=== PATIENT | female | born 1960 | race Caucasian/White ===

== ENCOUNTER → 2017-06-24 | Day surgery (SDC) | payer BC ==
--- NOTE | 2017-06-24 13:17 | RAD REPORT ---
EXAM DESCRIPTION: US - Guided FNA Non Breast - 06/24/2017 10:29 am CLINICAL HISTORY: Thyroid nodule ICD E04.1. COMPARISON: 09/15/2016. FINDINGS: Sonographic evaluation demonstrates a dominant nodule within the left lobe of thyroid gland measuring approximately 2 cm. The risks, benefits and alternatives to the procedure were explained to the patient and informed cons ent obtained. Skin subcutaneous tissues were anesthetized with Lidocaine. Under sonographic guidance, five 25-gauge needle passes were obtained into the 2 cm nodule. Specimens were given to pathology. The patient experienced no immediate complication. IMPRESSION: Fine-needle aspirations of a 2 cm left thyroid nodule.
== END ==
LOC: FNA 09:14
PROVIDERS: ATTEND Otolaryngology
PROC: 0G9G3ZX Drainage of Left Thyroid Gland Lobe, Percutaneous Approach, Diagnostic (ICD-10-PCS; principal; 2017-06-24)
DX: E04.1 Nontoxic single thyroid nodule (principal)
CPT/HCPCS: 76942; 88162

== ENCOUNTER 2017-08-07 10:35 | Inpatient (IN) | payer BC ==
[2017-08-05 10:52] LABS: Absolute Monocytes 0.6 K/uL (0.1-1.3); Absolute Neutrophil 5.6 K/uL (1.8-8.0); Basophils % 0.8 % (0-1.3); Eosinophils % 2.6 % (0-4.4); Hematocrit 44.2 % (36.0-45.0); Lymphocytes % 31.4 % (15.3-44.8); MCH 29.9 pg (27.0-35.0); MCV 86.4 fL (80-100); MPV 8.2 fL (7.6-11.3); Monocytes % 6.5 % (3.3-12.3); RBC Red Blood Cell Count 5.12 M/uL (3.86-4.86)
[2017-08-05 11:27] LABS: Protein, Total 7.5 g/dL (6.0-8.3)
--- NOTE | 2017-08-05 23:02 | EKG ---
Test Date: 2017-08-05 Test Time: 10:40:21 Law Firm Receptionist: ANA MEASUREMENT RESULTS: Intervals: Rate: 67 MT: 158 QRSD: 92 QT: 410 QTc: 433 Roland: P: 19 MT: 158 QRS: -21 T: 33 INTERPRETIVE STATEMENTS: Normal sinus rhythm Normal ECG No previous ECG available for comparison Electronically Signed On 08-05-17 23:00:59 CDT by Yaakov Holcomb
[2017-08-07] MEDS ORDERED: NA CHLORIDE 0.9% 1,000 ML ONE ×2 (10:56→14:37)
[2017-08-07] MEDS ORDERED: LIDOCAINE 1% W/EPI 1:100,000 MDV 50 ML VIAL ONE (11:07)
[2017-08-07] MEDS ORDERED: FENTANYL CITR 100 MCG/2 ML ONE ×2 (11:47→17:02)
[2017-08-07] MEDS ORDERED: PROPOFOL 200 MG/20 ML VIAL IV ONE ×3 (11:47→17:54)
[2017-08-07] MEDS ORDERED: ROCURONIUM 50 MG/5 ML VIAL IV ONE ×2 (11:48→17:02)
[2017-08-07] MEDS ORDERED: MIDAZOLAM HCL 2 MG/2 ML INJ ONE (11:49)
[2017-08-07] MEDS ORDERED: LIDOCAINE 2% MPF 5 ML VIAL ONE (11:49)
[2017-08-07] MEDS ORDERED: ONDANSETRON HCL 40 MG/20 ML VIAL ONE (11:56)
[2017-08-07] MEDS ORDERED: SCOPOLAMINE HYDROBROMIDE PATCH TD ONE (12:38)
[2017-08-07] MEDS ORDERED: EPHEDRINE SULF 50 MG/5 ML SYR ONE (12:48)
[2017-08-07] MEDS ORDERED: Mastisol Adhesive Liq ONE (13:57)
[2017-08-07] MEDS ORDERED: NEOSTIGMINE 1 MG/ML -5 ML SYRINGE ONE ×2 (14:00→18:03)
[2017-08-07] MEDS ORDERED: GLYCOPYRROLATE 0.2 MG/ML SYR ONE ×2 (14:00→18:02)
--- NOTE | 2017-08-07 14:03 | P.BOP ---
Preoperative diagnosis: suspicious thyroid mass Postoperative diagnosis: same Primary procedure: total thyroidectomy Director Clinical Operations: Olamide Ace Estimated blood loss: 20ml Specimen: total thyroid Findings: very hard L thyroid mass Anesthesia: General Drain(s): ANDRE drain Fluids & blood products: crystalloid 900ml Transferred to: Recovery Room Condition: Good
[2017-08-07] MEDS ORDERED: DEXAMETHASONE 10 MG/ML VIAL ONE (14:17)
[2017-08-07] MEDS ORDERED: ALBUTEROL 2.5 MG/3 ML NEB SOL ONE (14:23)
[2017-08-07] MEDS ORDERED: EPINEPHRINE INH 0.5 ML VIAL IH ONE (14:28)
[2017-08-07] MEDS ORDERED: ONDANSETRON 4 MG/2 ML VIAL IV PRN (15:39)
[2017-08-07] MEDS: INSULIN -REGULAR HUMAN 50 UNIT/0.5 ML ML SQ SCH ×2 (16:30→21:00)
[2017-08-07] MEDS ORDERED: D50W 25 GM/50 ML SYRINGE IV PRN (16:53)
[2017-08-07] MEDS ORDERED: GLUCAGON 1 MG/VIAL IM PRN (16:53)
[2017-08-07] MEDS ORDERED: SUCCINYLCHOLINE 20 MG/ML (10 ML) IV ONE (16:59)
[2017-08-07] MEDS: LIDOCAINE 1% W/EPI 1:100,000 MDV 50 ML VIAL ONE ×2 (17:07→17:24)
--- NOTE | 2017-08-07 17:24 | PN ---
Interim History: The patient underwent a total thyroidectomy earlier this afternoon. She was noted immediately following extubation to have inspiratory stridor, but after a few breaths seem to settle down, and did not have significant stridor during quiet respiration. A flexible nasal laryngoscopy was performed while in the operating room, and the patient was noted to have paresis of both vocal cords, but an adequate glottic airway, and was transported to the recovery room for close monitoring. Over the next 2 hours, the patient continued to have subjective difficulty breathing, though she did not have retractions, and her oxygen saturation remained excellent. With deep inspiration, she had stridor and a second flexible laryngoscopy was performed. The patient was noted to have very limited bilateral vocal cord movement with the vocal cords in the paramedian position. The findings were discussed with the patient and her family, and the decision was made to admit the patient to the ICU for close observation overnight. After careful consideration of the situation, I discussed the option of tracheostomy with the patient, and she favored tracheostomy, suggesting to me that her difficulty breathing was more significant subjectively than clinically apparent and decision was made to proceed electively to the operating room for placement of tracheostomy to secure her airway. The risks, benefits, and alternatives to the procedure were discussed with the patient including failure to decannulate or inability to decannulate. We will plan for OR KAYY and proceed with admission to the ICU for the weekend. GABRIELA Voice ID: [id number] Report ID: [id number] YOLANDA
[2017-08-07] MEDS: NA CHLORIDE 0.9% 1,000 ML IV SCH ×2 (17:35→21:10)
[2017-08-07 17:39] LABS: Albumin 4.2 g/dL (3.2-5.5); Magnesium 2.1 mg/dL (1.8-2.5); Phosphorus 3.3 mg/dL (2.5-4.3)
--- NOTE | 2017-08-07 18:48 | RAD REPORT ---
EXAM DESCRIPTION: RAD - Abdomen 1 View (KUB) - 08/07/2017 6:42 pm CLINICAL HISTORY: DHT placement Pain COMPARISON: No comparisons FINDINGS: The bowel gas pattern is non-obstructive. No evidence of free air or pneumatosis. Enteric tube is in the stomach.
[2017-08-07] MEDS: HYDROCODONE/APAP 5/325 MG TAB PO PRN (20:28)
[2017-08-07] MEDS: IBUPROFEN 100 MG/5 ML UCUP PO PRN (23:33)
[2017-08-08] MEDS: NA CHLORIDE 0.9% 1,000 ML IV SCH ×4 (02:00→22:00)
--- NOTE | 2017-08-08 02:00 | OP ---
Date of Procedure: 08/07/2017 Surgeon: Emma Johnson MD Assembly Machine Tender: Olamide Ace. Preoperative Diagnosis: Suspicious left thyroid nodule, hypercalcemia (11.4). Postoperative Diagnosis: Suspicious left thyroid nodule, clinically suspicious for malignancy. Indication For Procedure: Danielle Collins is a 56-year-old white female who presented with an incidental thyroid nodule. Due to social stressors including the loss of her , she opted for observation initially. On repeat the ultrasound approximately 6 months later, the nodule had enlarged slightly, and she was amenable to biopsy. She underwent an ultrasound-guided fine-needle aspiration of the left thyroid nodule which was suspicious for malignancy; and due to this finding, a total thyroidectomy was recommended. The finding of hypercalcemia was noted on pre-operative labs but no formal work-up was performed due to pending neck surgery which would allow exploration. Specimen: Total thyroid with suture marking superior left pole. Description Of Procedure: The patient was brought to the operating room. She was placed under general anesthesia via oral endotracheal tube. Shoulder roll was placed. The patient's neck was extended. The planned incision site was injected with 1% lidocaine with epinephrine, and the neck was prepped and draped in standard fashion for thyroid surgery. A low collar incision was made through the skin and subcutaneous tissues using a scalpel, and the Bovie electrocautery was used to elevate the subplatysmal flap superiorly and inferiorly. The strap muscles were then identified in the midline and carefully . The strap muscles were elevated easily off the anterior surface of the thyroid, and the inferior pole was mobilized by division of soft tissue and vascular attachments with the LigaSure. The inferior pole was noted to be soft with a normal or average texture. In the deep mid lobe, there was a very hard nodule consistent with ultrasound findings. In addition, in the superior pole, there was a very firm or hard nodule; and along the lateral aspect superiorly, the muscle was somewhat stuck down to the mass. The small sliver of the strap muscles were divided and left attached to the specimen. The superior pole was carefully dissected along its capsule, and vascular attachments were divided using the LigaSure. The thyroid was mobilized, but the firm hard nodule was stuck down firmly in the area of the Tariq ligament, and a small amount of bleeding from small vessels was noted. This area was packed to allow for hemostasis without cautery, and attention was turned to the right thyroid. The strap muscles were easily elevated off the right thyroid, and the thyroid capsule was identified. Dissection was carried out superiorly around the superior pole, and vascular attachments were divided using the LigaSure. The lateral border was rolled medially, and the inferior pole was carefully dissected. The texture of the right thyroid was soft and otherwise unremarkable. The thyroid was carefully released from the area of Tariq ligament. The right recurrent laryngeal nerve was identified deep to this area. Once Tariq ligament was released, the thyroid isthmus was elevated off the anterior wall of the trachea. A small pyramidal lobe was noted, and this was carefully dissected due to concern for thyroid malignancy and desire to remove all gross thyroid tissue. Once the pyramidal lobe was mobilized, attention was turned back to the left Tariq ligament area. The tissues were carefully elevated off the left sidewall of the trachea, but was quite stuck down in the area of the recurrent laryngeal nerve. The recurrent laryngeal nerve was not specifically identified as the final soft tissue attachments became dislodged during retraction. The specimen was then removed and carefully inspected. There wassome concern for parathyroid tissue noted on the right inferior surface of the thyroid. I tried to dissect the tissue off the surface of the thyroid but it was larger than expected for parathyroid and in consideration of pre-operative hyperparathyroidism, I opted to leave this tissue attached to the specimen. The specimen was sent to pathology for permanent section analysis. The surgical bed was carefully inspected. The left upper and lower parathyroid glands were visually identified on the and appeared to have adequate vascular pedicle and good color. There was no significant bleeding or oozing noted within the surgical bed. The right parathyroids were not specifically identified by visual inspection. A 10-Kyrgyz ANDRE drain was then placed within the neck and withdrawn through the left neck approximately a centimeter and a half lateral to the incision. The strap muscles were approximated with a single suture in the midline over the trachea. The incision was then closed in layered fashion using 4-0 chromic deep sutures and 5-0 Monocryl subcuticular suture. The incision was covered with Mastisol and Steri-Strips, and the patient was returned to care of Anesthesia for awakening and extubation in the operating room. Following extubation, the patient was noted to have 2 loud episodes of inspiratory stridor. She was monitored in the operating room for several minutes. She was oxygenating well with mild supplementation of oxygen. She did not have any retractions or increased work of breathing noted. During low tidal volume respiration, she was quiet, but there was some concern for mild stridor with deeper breaths versus lung wheezing. A flexible laryngoscope was brought into the room. There were copious secretions; and due to patient's decreased level of alertness from anesthesia, she was poorly cooperative with examination. The vocal cords were easily identified and appeared mobile, but sluggish. With deep inspiration, there was a paradoxical vocal cord movement with a little floppy movement of the medial-most surface. The patient appeared stable, and decision was made to move to the recovery room to allow further emergence from anesthesia. Disposition: The patient will be monitored carefully in the recovery room for signs of airway obstruction or vocal cord paresis prior to consideration for discharge. GABRIELA Voice ID: [id number] Report ID: [id number] YOLANDA
[2017-08-08] MEDS: HYDROCODONE/APAP 5/325 MG TAB PO PRN ×4 (02:02→21:06)
[2017-08-08 06:25] LABS: Albumin 3.8 g/dL (3.2-5.5); Potassium 3.9 mEq/L (3.6-5.0)
[2017-08-08] MEDS: INSULIN -REGULAR HUMAN 50 UNIT/0.5 ML ML SQ SCH ×4 (07:30→21:00)
[2017-08-08] MEDS: HOME MED 1 EA UNK (Potassium [Potassium] 99 MG) PO SCH (07:59)
[2017-08-08] MEDS: CARVEDILOL 25 MG TAB PO SCH ×2 (08:03→21:05)
[2017-08-08] MEDS: hydroCHLOROthiazide 25 MG TAB PO SCH (08:03)
[2017-08-08] MEDS: MAGNESIUM OXIDE 400 MG TAB PO SCH (08:07)
[2017-08-08] MEDS ORDERED: VALSARTAN 160 MG TAB PO SCH (09:00)
[2017-08-08] MEDS: GLIMEPIRIDE 2 MG TABLET PO SCH (09:00)
[2017-08-08] MEDS ORDERED: PANTOPRAZOLE 40MG TABLET PO SCH (09:00)
[2017-08-08] MEDS ORDERED: NIACIN 500 MG SR TAB PO SCH (09:00)
--- NOTE | 2017-08-08 09:09 | P.PN ---
Subjective Date of Service: 08/08/17 Chief Complaint: No complaints Subjective: Other POD 1 TT with B VC paresis requiring secondary surgery for tracheotomy. Patient admitted to ICU for monitoring overnight. Pain is controlled with [place] and Advil. Denies perioral tingling or tingling in fingertips/toes. Unable to voice around trach but communicating by writing. No significant overnight events. Jerome placed in OR yesterday remains. Review of Systems Unremarkable Physical Examination - Vital Signs Temperature: 97.6 F Blood Pressure: 117/66 Pulse: 90 Respirations: 18 Pulse Ox (%): 100 - Physical Exam General: Alert, In no apparent distress HEENT: Atraumatic, Normocephalic, PERRLA, Other (Left DHT in place.) Neck: Supple, Other (6.[address] with sutures and umbilical tie. On trach collar. Minimal drainage. No redness of surrounding skin. No voicing around trach.) Musculoskeletal: Other (Negative Chvostek sign) Neurological: Normal affect - Studies Laboratory Data (last 24 hrs) 08/08/17 07:34: POC Glucose 134 H 08/08/17 05:32: Sodium 139, Potassium 3.9, Chloride 107, Carbon Dioxide 23, BUN 22 H, Creatinine 0.73, Estimated GFR 82 L, Glucose 151 H, Calcium 8.6 D, Albumin 3.8 08/07/17 20:30: POC Glucose 145 H 08/07/17 18:35: POC Glucose 141 H 08/07/17 17:05: Calcium 9.9 D, Phosphorus 3.3, Magnesium 2.1, Albumin 4.2 08/07/17 14:43: PTH Intact < 4 L 08/07/17 14:37: POC Glucose 108 08/07/17 11:19: POC Glucose 99 Medications List Reviewed: Yes Assessment And Plan - Current Problems (Diagnosis) (1) Bilateral vocal cord paresis Current Visit: Yes Status: Acute Plan: s/p trach yesterday evening. Watching waiting for spontaneous recovery. Discussed with patient that recovery can take several weeks or months and that no additional intervention would be considered until about 6 months from now. If spontaneous recovery is noted, decannulation protocol will be followed. For now, I anticipate discharge home with a tracheotomy. She needs case management for home suction, trach supplies, home health visits to reinforce trach care teaching. Anticipate downsize to 4.0 CFS on Thursday. Do to new tracheotomy, will keep patient in ICU for now. (2) Airway obstruction, anatomic Current Visit: Yes Status: Acute Plan: see plan for VC paresis (3) Thyroid cancer Current Visit: Yes Status: Acute Plan: s/p total thyroidectomy. Pathology for confirmation and pathologic staging pending. Will likely need endocrinology follow up for discussion of WADE once acute issues are stablized. (4) Post-surgical hypothyroidism Current Visit: Yes Status: Acute Plan: Due to likely cancer diagnosis, will hold LT4 supplement at this time. (5) Post-surgical hypoparathyroidism Current Visit: Yes Status: Acute Plan: Ca, Mg, Alb q 12 hours. Will treat according to hypoCa protocol if continues to decrease. Patient educated about symptoms of HypoCa and asked to notify nurse KAYY if symptoms develop. Plan for PTH measurement on Thursday. (6) Aspiration into airway Current Visit: Yes Status: Acute Plan: DHT in place for tube feeds. Discussed risk of aspiration with vocal cord paresis. Plan for bedside swallow eval with HOLLOW HANDLE KNIFE ASSEMBLER on Thursday. If fails, will plan for MBS. If MBS indicates aspiration can be managed with dietary modifications, will d/c DHT and start diet. If unable to manage with diet modifications, we will discuss feeding tube placement for nutrition until vocal cord issues stabilize. Qualifiers: Encounter type: initial encounter Qualified Code(s): T17.908A - Unspecified foreign body in respiratory tract, part unspecified causing other injury, initial encounter (7) Diabetes mellitus Current Visit: Yes Status: Acute Plan: Monitor FSBG. Continue insulin sliding scale. Continue home glipizide. Jardiance not available in hospital. Hospitalist contacted for suggestions for alternative. Formal consultation not needed at this time but if sugars become an issue, will reassess need. Continue FSBG measurements - no insulin has been needed since levels in the 140-150s. This may change as we start tube feeds. Military Technician consulted for TF recommendations Qualifiers: Diabetes mellitus type: type 2 Diabetes mellitus parts counterman insulin use: without shelter use Diabetes mellitus complication detail: with nephropathy (8) Hypertension Current Visit: Yes Status: Acute Plan: Controlled, continue home medications (9) At high risk for deep venous thrombosis Current Visit: Yes Status: Acute Plan: SCDs in place. Discussed risk with patient including signs/symptoms and risk of PE. Since she's <24 hours from surgery, will hold pharmacologic prophylaxis for now. Consider starting tomorrow if surgical site is clean and dry. Discuss ambulation and OOB to chair today. DC Jerome today to aid in ambulation. Discharge Plan: Home Plan to discharge in: Greater than 2 days - Code Status/Comfort Care Code Status: Full Code Time Spent Managing PTS Care (In Minutes): 60
[2017-08-08] MEDS: CETIRIZINE HCL 5 MG TABLET PO SCH (09:28)
[2017-08-08] MEDS: CYANOCOBALAMIN 1,000 MCG TAB PO SCH (09:28)
--- NOTE | 2017-08-08 13:45 | OP ---
Date of Procedure: 08/08/2017 Surgeon: Emma Johnson MD Preoperative Diagnoses: Airway obstruction, bilateral vocal cord paresis, surgical hypothyroidism, surgical hypoparathyroidism. Postoperative Diagnoses: Airway obstruction, bilateral vocal cord paresis, surgical hypothyroidism, surgical hypoparathyroidism. Procedure: Wound exploration, Tracheostomy. Indication For Procedure: The patient underwent a total thyroidectomy for suspected thyroid cancer earlier in the afternoon. At the time of extubation, she had brief episode of stridor and was monitored carefully in the recovery room. Approximately 2 to 2-1/2 hours after her extubation on reassessment, she had mild inspiratory stridor, was oxygenating well and did not appear to be in any acute distress in terms of retractions, increased work of breathing, tachycardia, or tachypnea. However, the patient did complain of subjective difficulty breathing and a bedside fiberoptic laryngoscopy was performed. Findings demonstrated both vocal cords in a paramedian position with narrowing of the glottic gap and minimal abduction or adduction with phonation and respiration; she had a significantly breathy voice. In the recovery room, the patient was given some sips of water with a weak cough, raising concern for aspiration. Although the patient did not appear to be in acute distress, she was having subjective symptoms of airway obstruction. Initial plan for admission to the ICU for close monitoring was reassessed given the patient's laryngoscopic findings. I discussed the options with the patient including close monitoring with surgical intervention if symptoms worsened versus proceeding with the planned tracheostomy and the patient indicated immediately by nodding her head "yes" that she wished to proceed with tracheostomy, suggesting that her symptoms of airway obstruction were greater than clinically apparent. Description Of Procedure: The patient was brought to the operating room. She was placed under general anesthesia via oral endotracheal tube. A shoulder roll was placed and the head was supported. The neck was prepped with Betadine after removal of the previously placed Steri-Strips, and the neck was draped in sterile fashion. Her thyroidectomy incision was opened by removal of sutures and the surgical site was carefully inspected. The previously placed the ANDRE drain was removed, and the drain site was closed with a single fast-absorbing gut suture. On inspection of the cavity, the patient's laryngeal musculature, cricoid, and trachea appeared normal. By retraction of the strap muscles, the thyroid bed was carefully inspected bilaterally. The right thyroid bed was hemostatic. There was no significant drainage and no evidence of bleeding. No discrete parathyroid tissue was noted within the right thyroid bed. The right recurrent laryngeal nerve was visually identified and with gentle retraction on the larynx and trachea, it appeared to be physically intact. There was no evidence of suture in this region. There was no evidence of cautery charring on the nerve, though there was some keyla in the area of Tariq ligament several millimeter superficial to the nerve insertion. Inspection the left thyroid bed revealed 2 areas of tissue consistent in appearance with parathyroid tissue. These appear to have good color suggesting adequate vascular inflow and outflow. The left recurrent laryngeal nerve was identified near its insertion point to the larynx. Again it appeared anatomically to be intact without evidence of suture or charring on the nerves. There was no bleeding noted within the left surgical bed and plan was made to proceed with tracheostomy. The lateral aspects of the thyroidectomy incision were closed in a layered fashion using 4-0 Vicryl deep sutures and 5-0 fast-absorbing gut for the skin. The central 2 cm of the incision was left open and preparations were made for the tracheostomy incision. After confirming the plan with the anesthesiologist , the space between the second and third tracheal rings was identified and the surface of the trachea was lightly scored with the Bovie electrocautery. A scalpel was then used to make a tracheostomy incision between the second and third tracheal rings. The endotracheal tube was identified and slowly withdrawn. A 6 low-pressure cuffed Shiley tracheostomy tube was attempted to be placed, but the tracheostomy incision was slightly too small, and during attempts to revise and enlarge the incision, the patient's oxygen saturation began to drop into the low 90s. The anesthesiologist was asked to advance the endotracheal tube beyond the tracheostomy incision, and the patient was ventilated for several minutes to bring her oxygen saturation back to 100% and to preoxygenate her. Once her oxygenation status was stabilized, the tracheostomy incision was enlarged slightly with curved scissors and the endotracheal tube was again partially withdrawn. The 6 low-pressure cuffed tracheostomy tube was then advanced into the trachea, and connected to the anesthesia circuit. Placement was confirmed by fogging in the circuit, visible chest rise for ventilation, and return of CO2 on anesthesia monitoring. The tracheostomy tube was then secured to the anterior neck skin in a four-point fashion with 2-0 silk suture and an umbilical neck tie was placed for further stabilization. Due to patient's risk of aspiration, a Dobbhoff tube was obtained and placed through the left nostril for feeding access anticipated through the patient's initial hospitalization. The Dobbhoff tube was secured with tape to the patient's nose, and the patient was returned to care of anesthesia for awakening and transportation to the intensive care unit for close monitoring overnight. JUAN/ABBEY Voice ID: [id number] Report ID: [id number] MTDD
[2017-08-08] MEDS: CALCITROL 0.25 MCG CAP PO SCH (18:49)
[2017-08-08] MEDS ORDERED: GLUCERNA 1.2 CAL 1,000 ML BOT FT SCH (19:00)
[2017-08-08] MEDS: CALCIUM CARBONATE 500 MG TAB PO SCH (21:04)
[2017-08-08] MEDS: ATORVASTATIN 20 MG TAB PO SCH (21:06)
[2017-08-09] MEDS: HYDROCODONE/APAP 5/325 MG TAB PO PRN ×2 (05:20→22:11)
[2017-08-09 05:58] LABS: Albumin 3.5 g/dL (3.2-5.5); Potassium 3.5 mEq/L (3.6-5.0)
[2017-08-09] MEDS: INSULIN -REGULAR HUMAN 50 UNIT/0.5 ML ML SQ SCH ×4 (07:30→21:00)
[2017-08-09] MEDS: NIACIN 500 MG SR TAB PO SCH (08:22)
[2017-08-09] MEDS: HOME MED 1 EA UNK (Potassium [Potassium] 99 MG) PO SCH (08:22)
[2017-08-09] MEDS: CYANOCOBALAMIN 1,000 MCG TAB PO SCH (08:38)
[2017-08-09] MEDS: Pantoprazole (granules) 40 MG/BLIST PACKET FT SCH (08:38)
[2017-08-09] MEDS: CETIRIZINE HCL 5 MG TABLET PO SCH (08:38)
[2017-08-09] MEDS: CALCITROL 0.25 MCG CAP PO SCH ×2 (08:38→22:12)
[2017-08-09] MEDS: MAGNESIUM OXIDE 400 MG TAB PO SCH (08:39)
[2017-08-09] MEDS: hydroCHLOROthiazide 25 MG TAB PO SCH (08:39)
[2017-08-09] MEDS: CALCIUM CARBONATE 500 MG TAB PO SCH (08:39)
[2017-08-09] MEDS: GLIMEPIRIDE 2 MG TABLET PO SCH (08:39)
[2017-08-09] MEDS: CARVEDILOL 25 MG TAB PO SCH ×2 (08:40→22:17)
[2017-08-09] MEDS: VALSARTAN 160 MG TAB PO SCH (09:00)
[2017-08-09] MEDS ORDERED: POTASSIUM 25 MEQ EFFERV TAB FT SCH (09:00)
--- NOTE | 2017-08-09 09:24 | P.PN ---
Subjective Date of Service: 08/09/17 Chief Complaint: No complaints POD 2 TT with B VC paresis requiring secondary surgery for tracheotomy. Patient and nurse deny any significant issues yesterday or overnight. Patient was up to chair twice and had a little subjective SOB but improved with trach collar resumption. Pain is controlled with [place] and Advil. Denies perioral tingling or tingling in fingertips/toes. Unable to voice around trach with ballon deflated but communicating by writing. Physical Examination - Vital Signs Temperature: 97.6 F Blood Pressure: 102/58 Pulse: 66 Respirations: 13 Pulse Ox (%): 97 - Physical Exam General: Alert, In no apparent distress HEENT: Normocephalic Neck: Other (6LPC Shiley with cuff deflated. Moderate back pressure and no voice production with finger occlusion. Mininal suctions noted from trach tube. Incision difficult to examine due to trach flange. Expected degree of tenderness ) Respiratory: Normal air movement Cardiovascular: Normal pulses, Regular rate/rhythm - Studies Laboratory Data (last 24 hrs) 08/09/17 05:12: Sodium 141, Potassium 3.5 L, Chloride 107, Carbon Dioxide 24, BUN 23 H, Creatinine 0.72, Estimated GFR 83 L, Glucose 129 H, Calcium 7.6 L, Albumin 3.5 -- Corrected Ca is 8.0 08/08/17 20:22: POC Glucose 109 08/08/17 17:04: Calcium 7.8 L 08/08/17 16:46: POC Glucose 107 08/08/17 12:04: POC Glucose 129 H Medications List Reviewed: Yes Assessment & Plan - Problems (Diagnosis) (1) Bilateral vocal cord paresis Current Visit: Yes Status: Acute Plan: s/p trach. Watching waiting for spontaneous recovery. Discussed yesterday with patient that recovery can take several weeks or months and that no additional intervention would be considered until about 6 months from now. If spontaneous recovery is noted, decannulation protocol will be followed. For now , I anticipate discharge home with a tracheotomy. She needs case management for home suction, trach supplies, home health visits to reinforce trach care teaching. Anticipate downsize to 4.0 CFS on Thursday. Doing well without significant secretions - plan to transfer to floor for further care. (2) Airway obstruction, anatomic Current Visit: Yes Status: Acute Plan: see plan for VC paresis (3) Thyroid cancer Current Visit: Yes Status: Acute Plan: s/p total thyroidectomy. Pathology for confirmation and pathologic staging pending. Will likely need endocrinology follow up for discussion of WADE once acute issues are stablized. (4) Post-surgical hypothyroidism Current Visit: Yes Status: Acute Plan: Due to likely cancer diagnosis, will hold LT4 supplement at this time. (5) Post-surgical hypoparathyroidism Current Visit: Yes Status: Acute Plan: Continue Ca, Mg, Alb q 12 hours. Continue Calcium TID and calcitriol 0.25mcg BID for now. No IV calcium is indicated at this time. If she's had subclinical hyperparathyroidism prior to surgery, she may develop hungry bone syndrome. Patient educated about symptoms of HypoCa and asked to notify nurse KAYY if symptoms develop. Plan for PTH measurement on Thursday. (6) Aspiration into airway Current Visit: Yes Status: Acute Plan: DHT in place for tube feeds. Plan for bedside swallow eval with SUPERVISOR CHEMICAL on Thursday. If fails, will plan for MBS. If MBS indicates aspiration can be managed with dietary modifications, will d/c DHT and start diet. If unable to manage with diet modifications, we will discuss feeding tube placement for nutrition until vocal cord issues stabilize. I discussed this possibility with the patient this morning. Will hold further discussion until swallow evaluation is complete. Would plan for consult and PEG placement during this hospitalization if it is indicated. Qualifiers: Encounter type: initial encounter Qualified Code(s): T17.908A - Unspecified foreign body in respiratory tract, part unspecified causing other injury, initial encounter (7) Diabetes mellitus Current Visit: Yes Status: Acute Plan: Monitor FSBG. Continue insulin sliding scale - none required during this hospitalization. Continue home glipizide. Jardiance home medication will be checked by pharmacy and resumed once approved. Kiln Placer consulted for TF recommendations - pending evaluation due to the weekend. She is tolerating [place] 1.2 at 30ml/h with plan to increase to 45ml/h later today. Her BUN is a little high but stable from yesterday - she might required additional free water. Will plan to d/c IV fluids once nutrition's recommendations are available. Qualifiers: Diabetes mellitus type: type 2 Diabetes mellitus intermediate frame tender insulin use: without penitentiary use Diabetes mellitus complication detail: with nephropathy (8) Hypertension Current Visit: Yes Status: Acute Plan: Controlled, borderline low yesterday, continue home medications with hold precautions as ordered. (9) At high risk for deep venous thrombosis Current Visit: Yes Status: Acute Plan: SCDs in place. Discussed risk with patient including signs/symptoms and risk of PE. Since surgical site is clean and dry, start Lovenox SQ for additional DVT prophylaxis. (10) At risk for constipation Current Visit: Yes Status: Acute Plan: Start docusate. Monitor for BM Discharge Plan: Home (Patient's sister is staying with her from [place] until August 22 and may stay longer pending condition. She's comfortable at this point in time going home.) Plan to discharge in: Greater than 2 days (pending SUPERVISOR CHEMICAL findings and potential need for PEG) - Code Status/Comfort Care Code Status: Full Code Time Spent Managing Pts Care (In Minutes): 45 (arranging transfer, speaking with patient and nursing staff.)
[2017-08-09] MEDS ORDERED: GLUCERNA 1.5 CAL 1,000 ML BOT RTH SCH ×2 (12:00→18:08)
[2017-08-09] MEDS: ENOXAPARIN 30 MG/0.3 ML SQ SCH (13:49)
[2017-08-09] MEDS: DOCUSATE NA 100 MG CAP PO SCH ×2 (13:49→22:12)
[2017-08-09] MEDS ORDERED: CALCIUM CARBONATE CHEW 500MG TAB PO SCH (14:00)
[2017-08-09] MEDS: IBUPROFEN 100 MG/5 ML UCUP PO PRN (15:57)
[2017-08-09] MEDS: JARDIANCE 25 MG PO SCH (17:22)
[2017-08-09] MEDS: NA CHLORIDE 0.9% 1,000 ML IV SCH ×3 (17:23→22:11)
[2017-08-09 17:36] LABS: Albumin 3.4 g/dL (3.2-5.5); Magnesium 1.8 mg/dL (1.8-2.5)
[2017-08-09] MEDS: CALCIUM CARBONATE CHEW 500MG TAB PO SCH ×2 (18:28→21:00)
[2017-08-09] MEDS: ATORVASTATIN 20 MG TAB PO SCH (22:12)
[2017-08-10] MEDS: NA CHLORIDE 0.9% 1,000 ML IV SCH (04:00)
[2017-08-10 04:43] LABS: Albumin 3.4 g/dL (3.2-5.5); BUN Blood Urea Nitrogen 17 mg/dL (6-20); Bicarbonate 26 mEq/L (21-31); Glucose Level 132 mg/dL (65-120); Potassium 3.2 mEq/L (3.6-5.0); Sodium Level 142 mEq/L (135-145)
[2017-08-10] MEDS ORDERED: CALCIUM GLUC 10% INJ 4.65 MEQ in NA CHLORIDE 0.9% 100 ML IV ONE (05:09)
[2017-08-10] MEDS ORDERED: CALCIUM GLUCONATE 1 GM IVPB 1 GM/50 ML BAG IV ONE (06:33)
[2017-08-10] MEDS: INSULIN -REGULAR HUMAN 50 UNIT/0.5 ML ML SQ SCH ×4 (07:30→21:00)
[2017-08-10] MEDS: CARVEDILOL 25 MG TAB PO SCH ×2 (08:48→20:15)
[2017-08-10] MEDS: NIACIN 500 MG SR TAB PO SCH (08:48)
[2017-08-10] MEDS: hydroCHLOROthiazide 25 MG TAB PO SCH (08:48)
[2017-08-10] MEDS: GLIMEPIRIDE 2 MG TABLET PO SCH (08:49)
[2017-08-10] MEDS: ENOXAPARIN 30 MG/0.3 ML SQ SCH (08:49)
[2017-08-10] MEDS: MAGNESIUM OXIDE 400 MG TAB PO SCH (08:49)
[2017-08-10] MEDS: CYANOCOBALAMIN 1,000 MCG TAB PO SCH (08:49)
[2017-08-10] MEDS: CALCITROL 0.25 MCG CAP PO SCH ×2 (08:49→20:16)
[2017-08-10] MEDS: CETIRIZINE HCL 5 MG TABLET PO SCH (08:49)
[2017-08-10] MEDS: VALSARTAN 160 MG TAB PO SCH (08:49)
[2017-08-10] MEDS: DOCUSATE NA 100 MG CAP PO SCH (08:49)
[2017-08-10] MEDS: Pantoprazole (granules) 40 MG/BLIST PACKET FT SCH (08:49)
[2017-08-10] MEDS: CALCIUM CARBONATE CHEW 500MG TAB PO SCH ×3 (08:49→20:14)
[2017-08-10] MEDS: JARDIANCE 25 MG PO SCH (08:50)
[2017-08-10] MEDS: HOME MED 1 EA UNK (Potassium [Potassium] 99 MG) PO SCH (08:52)
[2017-08-10] MEDS ORDERED: HOME MED 1 EA UNK (Gabapentin [Gralise] 600 MG) PO SCH (09:00)
[2017-08-10] MEDS ORDERED: POTASSIUM 25 MEQ EFFERV TAB FT SCH (09:00)
[2017-08-10] MEDS ORDERED: HOME MED 1 EA UNK (Empagliflozin [Jardiance] 25 MG) PO SCH (09:00)
[2017-08-10] MEDS: HYDROCODONE/APAP 5/325 MG TAB PO PRN ×2 (10:23→20:16)
[2017-08-10] MEDS ORDERED: GLUCERNA 1.5 CAL 1,000 ML BOT RTH SCH (12:41)
[2017-08-10] MEDS ORDERED: CALCIUM GLUC 10% INJ 9.3 MEQ in NA CHLORIDE 0.9% 100 ML IV ONE (13:30)
[2017-08-10] MEDS: POTASSIUM CL 40 MEQ in NA CHLORIDE 0.9% 500 ML IV SCH ×3 (14:57→22:58)
--- NOTE | 2017-08-10 15:24 | RAD REPORT ---
EXAM DESCRIPTION: RAD - Barium Swallow Modified - 08/10/2017 3:14 pm CLINICAL HISTORY: r/o aspiration COMPARISON: No comparisons TECHNIQUE: The patient was given liquid, semi-solid and solid forms of barium. Lateral view fluorosc opic imaging was performed in conjunction with speech pathology service. FINDINGS: ASPIRATION : NO COUGH WITH THIN DURING SWALLOW OF PILL MILD TO MOD PHARYNGEAL RESIDUE: VALLECULAR,PYRIFORM WITH ALL OTHER: REDUCED SENSATION Total fluoroscopy time: 3 minutes and 32 seconds. IMPRESSION: Positive for aspiration.
[2017-08-10 17:50] LABS: Albumin 3.7 g/dL (3.2-5.5); Magnesium 1.6 mg/dL (1.8-2.5)
[2017-08-10] MEDS ORDERED: MAGNESIUM 50% 3 GM in NA CHLORIDE 0.9% 100 ML IV ONE (18:36)
--- NOTE | 2017-08-10 18:48 | P.PN ---
Subjective Date of Service: 08/10/17 Chief Complaint: Perioral tingling overnight POD 3 TT with B VC paresis requiring secondary surgery for tracheotomy. Patient had perioral tingling overnight that became more persistent toward the morning. Her nurse called me at 0510 and a verbal order was given for 1 amp Calcium gluconate IV x 1 and symptoms improved after administration. She continues to have some mild symptoms at the time of my visit about 12:30PM. She has had 2-3 good BMs and would like to reduce Colace to avoid loose stools. She has been OOB to the commode but is not really ambulating at this time. She had some flushing and gastric discomfort with potassium per tube this morning and doesn't feel she would tolerate this route of administration. She underwent a bedside swallow evaluation and MBS was recommended and is planned for later in the day. Physical Examination - Vital Signs Temperature: 98.9 F Blood Pressure: 125/68 Pulse: 68 Respirations: 18 Pulse Ox (%): 98 - Physical Exam General: Alert, In no apparent distress HEENT: Atraumatic, Normocephalic, Other (Mild [place] sign on the R, negative on the L.) Neck: Other (6 UTILITY GELATIN MAKER Shiley in place with crusting in inner cannula - cleaned and replaced. Incision without significant drainage. Expected degree of tenderness. No redness of skin. No voicing around trach at this time.) - Studies Laboratory Data (last 24 hrs) 08/10/17 17:00: 25-OH Vitamin D Total 20.3 L 08/10/17 17:00: Calcium 8.1 L, Magnesium 1.6 L, Albumin 3.7 08/10/17 16:01: POC Glucose 80 08/10/17 11:07: POC Glucose 135 H 08/10/17 07:32: POC Glucose 115 08/10/17 03:48: PTH Intact < 4 L 08/10/17 03:48: Sodium 142, Potassium 3.2 L, Chloride 107, Carbon Dioxide 26, BUN 17, Creatinine 0.64, Estimated GFR > 90, Glucose 132 H, Calcium 7.4 L, Albumin 3.4 08/09/17 19:30: POC Glucose 103 Medications List Reviewed: Yes Assessment & Plan - Problems (Diagnosis) (1) Bilateral vocal cord paresis Onset Date: 08/10/17 Current Visit: Yes Status: Acute Plan: s/p trach. Watching waiting for spontaneous recovery. For now, I anticipate discharge home with a tracheotomy. She needs case management for home suction, trach supplies, home health visits to reinforce trach care teaching. Anticipate downsize to 4.0 CFS on tomorrow morning. Needs better trach care with frequent cleaning, using and saline bullets to thin secretions. Needs teaching and instruction for independence with trach care in preparation for discharge. Spoke with nurse about teaching. (2) Airway obstruction, anatomic Onset Date: 08/10/17 Current Visit: Yes Status: Acute Plan: see plan for VC paresis (3) Thyroid cancer Onset Date: 08/10/17 Current Visit: Yes Status: Acute Plan: s/p total thyroidectomy. Pathology for confirmation and pathologic staging pending. Will likely need endocrinology follow up for discussion of WADE once acute issues are stablized. (4) Post-surgical hypothyroidism Onset Date: 08/10/17 Current Visit: Yes Status: Acute Plan: Due to likely cancer diagnosis, will hold LT4 supplement at this time. (5) Post-surgical hypoparathyroidism Onset Date: 08/10/17 Current Visit: Yes Status: Acute Plan: Continue Ca, Mg, Alb q 12 hours. Given prolonged need for repeated labs, request PICC placement. Continue Calcium 1500mg TID PO/PT and calcitriol 0.25mcg BID for now. PTH this AM is persistently low. Review of literature indicates that prognosis for fdc recovery is based on PTH and Ca levels at 1 month post-op so prediction is difficult at this time. Given mild symptoms and positive clinical findings, give 2 amps CalcGluc IV this afternoon. If persistently low Ca in the AM, will increase dose of calcitrol. Her magnesium is also trending down now and is already on PO/PT supplements - proceed with IV supplement this evening. Vit D is low - admin 50,000 IU PO weekly, first dose tomorrow AM. (6) Aspiration into airway Onset Date: 08/10/17 Current Visit: Yes Status: Acute Plan: DHT in place for tube feeds. Failed bedside swallow. Awaiting MBS later today (on rounds). Reviewed results this evening but SATELLITE MANAGER recommendations are surprising given the description in the report. Will clarify before removing the DHT Qualifiers: Encounter type: subsequent encounter Qualified Code(s): T17.908D - Unspecified foreign body in respiratory tract, part unspecified causing other injury, subsequent encounter (7) Diabetes mellitus Onset Date: 08/10/17 Current Visit: Yes Status: Acute Plan: Monitor FSBG. Range is between 80-150. Currently on home medications. Tolerating Glucerna and changed to 50ml/hr of the 1.5 concentration with free water flushes Qualifiers: Diabetes mellitus type: type 2 Diabetes mellitus fdc insulin use: without fdc use Diabetes mellitus complication detail: with nephropathy (8) Hypertension Onset Date: 08/10/17 Current Visit: Yes Status: Acute Plan: Controlled, borderline high after held dose but she received all her meds today and will continue to monitor (9) At high risk for deep venous thrombosis Onset Date: 08/10/17 Current Visit: Yes Status: Acute Plan: SCDs in place. Tolerating Lovenox without issues. Continue for now. PT consult since patient is not ambulating on her own. (10) At risk for constipation Onset Date: 08/10/17 Current Visit: Yes Status: Acute Plan: Decrease to daily docusate. Monitor for BM Plan to discharge in: 48 Hours (pending trach supplies and clarification of feeding recommendations) Time Spent Managing Pts Care (In Minutes): 30
[2017-08-10] MEDS: ATORVASTATIN 20 MG TAB PO SCH (20:16)
--- NOTE | 2017-08-10 21:55 | RAD REPORT ---
EXAM DESCRIPTION: RAD - Chest Single View - 08/10/2017 9:46 pm CLINICAL HISTORY: PICC Placement COMPARISON: Abdomen 1 View (KUB) dated 08/07/2017; Barium Swallow Modified dated 08/10/2017 FINDINGS: Portable chest was obtained following placement of a right upper extremity PICC line. The catheter tip projects over the SVC near the atrial-caval junction..
[2017-08-10] MEDS ORDERED: MAGNESIUM SULFATE 1 gm IVPB 1 GM/100 ML BAG IV ONE (22:17)
[2017-08-10] MEDS ORDERED: Magnesium Sulfate 2gm IVPB 2 G/50 ML BAG IV ONE (22:18)
[2017-08-11] MEDS: HYDROCODONE/APAP 5/325 MG TAB PO PRN ×2 (05:19→16:30)
[2017-08-11 05:38] LABS: Potassium 3.8 mEq/L (3.6-5.0)
[2017-08-11] MEDS ORDERED: D50W 25 GM/50 ML SYRINGE IV PRN (06:09)
[2017-08-11] MEDS ORDERED: GLUCAGON 1 MG/VIAL IM PRN (06:09)
[2017-08-11] MEDS ORDERED: CALCIUM GLUC 10% INJ 9.3 MEQ in NA CHLORIDE 0.9% 100 ML IV ONE (06:40)
[2017-08-11] MEDS: IBUPROFEN 100 MG/5 ML UCUP PO PRN (08:15)
[2017-08-11] MEDS: HOME MED 1 EA UNK (Potassium [Potassium] 99 MG) PO SCH (09:00)
[2017-08-11] MEDS: ENOXAPARIN 30 MG/0.3 ML SQ SCH (09:53)
[2017-08-11] MEDS: MAGNESIUM OXIDE 400 MG TAB PO SCH (09:54)
[2017-08-11] MEDS: NIACIN 500 MG SR TAB PO SCH (09:54)
[2017-08-11] MEDS: CALCIUM CARBONATE CHEW 500MG TAB PO SCH ×3 (09:55→22:30)
[2017-08-11] MEDS: CYANOCOBALAMIN 1,000 MCG TAB PO SCH (09:55)
[2017-08-11] MEDS: CETIRIZINE HCL 5 MG TABLET PO SCH (09:55)
[2017-08-11] MEDS: hydroCHLOROthiazide 25 MG TAB PO SCH (09:56)
[2017-08-11] MEDS: VALSARTAN 160 MG TAB PO SCH (09:56)
[2017-08-11] MEDS: GLIMEPIRIDE 2 MG TABLET PO SCH (09:56)
[2017-08-11] MEDS: CALCITROL 0.25 MCG CAP PO SCH ×2 (09:56→22:30)
[2017-08-11] MEDS: DOCUSATE NA 100 MG CAP PO SCH (09:57)
[2017-08-11] MEDS: CARVEDILOL 25 MG TAB PO SCH ×2 (09:57→22:31)
[2017-08-11] MEDS: Pantoprazole (granules) 40 MG/BLIST PACKET FT SCH (09:58)
[2017-08-11] MEDS: JARDIANCE 25 MG PO SCH (09:58)
[2017-08-11] MEDS: INSULIN -REGULAR HUMAN 50 UNIT/0.5 ML ML SQ SCH ×2 (12:00→17:42)
[2017-08-11 19:16] LABS: Albumin 3.1 g/dL (3.4-5.0); Magnesium 2.1 mg/dL (1.8-2.4)
--- NOTE | 2017-08-11 19:56 | P.PN ---
Subjective Date of Service: 08/11/17 Chief Complaint: No specific complaints this morning POD 4 TT with B VC paresis requiring secondary surgery for tracheotomy. Patient underwent MBS yesterday afternoon and had aspiration with thins during pill swallowing. I would like to speak with MARINE DRAFTER to better understand her recommendations prior to starting diet. She underwent PICC placement last night and the CXR confirmed placement. They are using the line for lab draws and for medications and it seems to be working well. She's OOB to a chair this morning and appears to be doing a bit better overall. Review of Systems Unremarkable Physical Examination - Vital Signs Temperature: 97.9 F Blood Pressure: 122/69 Pulse: 67 Respirations: 18 Pulse Ox (%): 96 - Physical Exam General: Alert, In no apparent distress, Other (OOB to a chair this AM) HEENT: Atraumatic, Normocephalic Neck: Other (6.0 SENIOR ACCOUNTING CLERK cuffed Shiley in place. The patient is returned to bed and placed supine. RT assisted during initial trach change this AM. Sats on RA were 96% prior to starting. The sutures and ties were cut and removed. Due to the risk for false passage with degree of dissection, trach change was performed using a red rubber catheter via a Seldinger technique. The 4.0 CFS Shiley was placed without difficulty and placement confirmed by palapble air movement through the lumen and by respiratory secretions suctioned through the tube. The patient has expected degree of coughing during/following change but calmed and continued to oxygenate well. She has subjective SOB with the inner cannula in place and improved with removal. After consideration, I opted to change to a 6.0 cuffless tube. Only a 6.0 CFN was available. This was placed, again using Seldinger technique with red rubber. The non-fenetrated inner cannula was used. Patient was more comfortable with the 6.0 tube in terms of respiratory status. She did have some voicing with finger occlusion but still had a little back pressure. PMV was not trialed. The lateral portions of the incision appear to be healing. Dissolvable sutures remain in place without sign of infection.) Integumentary: No rashes, No breakdown - Studies Laboratory Data (last 24 hrs) 08/11/17 17:06: Calcium 7.6 L, Magnesium 2.1, Albumin 3.1 L - Due to low Albumin, Ca corrects to 8.32 this evening 08/11/17 04:50: Sodium 138, Potassium 3.8, Chloride 102, Carbon Dioxide 27, BUN 14, Creatinine 0.69, Estimated GFR 88 L, Glucose 132 H, Calcium 7.2 L 08/11/17 01:20: POC Glucose 132 H 08/10/17 20:04: POC Glucose 102 Medications List Reviewed: Yes Assessment & Plan - Problems (Diagnosis) (1) Bilateral vocal cord paresis Onset Date: 08/10/17 Current Visit: Yes Status: Acute Plan: s/p trach. Watching waiting for spontaneous recovery. For now, I anticipate discharge home with a tracheotomy. Trach change to 4.0 not tolerated. Switched to 6.0 CFN with non-fenestrated inner canula and improved. Old 6.0 SENIOR ACCOUNTING CLERK trach cleaned and left at bedside for patient to practice removing and placing inner canula and encouraged to her work with RT and nurses to become more comfortable and independent with care. She does seem to voice better around the cuffless tube and voice quality is stronger. Unclear if this is because cords are recovering or if they are in more medial position. Consideration is given for FOL but given short time course and respiratory issues with trach change, I do not see a clear benefit at this time. Will plan for outpatient FOL in the office instead. List of supplies including in yesterday's addendum to note and SW notified of where to find list to start d/c planning. (2) Airway obstruction, anatomic Onset Date: 08/10/17 Current Visit: Yes Status: Acute Plan: see plan for VC paresis (3) Thyroid cancer Onset Date: 08/10/17 Current Visit: Yes Status: Acute Plan: s/p total thyroidectomy. Pathology for confirmation and pathologic staging pending. Will likely need endocrinology follow up for discussion of WADE once acute issues are stablized. (4) Post-surgical hypothyroidism Onset Date: 08/10/17 Current Visit: Yes Status: Acute Plan: Due to likely cancer diagnosis, will hold LT4 supplement at this time. (5) Post-surgical hypoparathyroidism Onset Date: 08/10/17 Current Visit: Yes Status: Acute Plan: Continue Ca, Mg, Alb q 12 hours. Continue Calcium 1500mg TID PO/PT and calcitriol 0.5 mcg BID for now. Will assess need for additional CaGluconate in the morning. Check Phos with AM labs tomorrow. (6) Aspiration into airway Onset Date: 08/10/17 Current Visit: Yes Status: Acute Plan: I spoke with MIGUEL Parsons regarding MBS results and recommendations. There was concern that pill hanging up and associated aspiration with thins during attempt to swallow was at least partially affected by the presence of the DHT and she was not comfortable removing it during the study. She feels the patient will likely tolerate PO. DHT removal ordered and plan to start purees with lunch today. Requested MARINE DRAFTER evaluate the patient in the afternoon for reassessment. She agrees. Qualifiers: Encounter type: subsequent encounter Qualified Code(s): T17.908D - Unspecified foreign body in respiratory tract, part unspecified causing other injury, subsequent encounter (7) Diabetes mellitus Onset Date: 08/10/17 Current Visit: Yes Status: Acute Plan: Blood glucose range is between 80-150. Currently well controlled on home medications. Stop TF and start pureed diet. Will continue to monitor blood sugars. Qualifiers: Diabetes mellitus type: type 2 Diabetes mellitus longwall headgate operator insulin use: without penitentiary use Diabetes mellitus complication detail: with nephropathy (8) Hypertension Onset Date: 08/10/17 Current Visit: Yes Status: Acute Plan: Controlled with home medications. No changes indicated at this time. (9) At high risk for deep venous thrombosis Onset Date: 08/10/17 Current Visit: Yes Status: Acute Plan: SCDs in place. Tolerating Lovenox without issues. Continue for now. PT consult since patient is not ambulating on her own. (10) At risk for constipation Onset Date: 08/10/17 Current Visit: Yes Status: Acute Plan: Decrease to daily docusate. Monitor for BM Plan to discharge in: 48 Hours (pending tolerance of PO and stability of blood calcium levels and HH/trach supplies)
[2017-08-11] MEDS: ATORVASTATIN 20 MG TAB PO SCH (22:31)
[2017-08-12] MEDS: INSULIN -REGULAR HUMAN 50 UNIT/0.5 ML ML SQ SCH
[2017-08-12 05:01] LABS: Absolute Lymphocytes (CBC) 1.9 K/uL (0.7-4.9); Absolute Monocytes 0.7 K/uL (0.1-1.3); Absolute Neutrophil 5.1 K/uL (1.8-8.0); Basophils % 0.5 % (0-1.3); Hematocrit 35.3 % (36.0-45.0); Lymphocytes % 24.1 % (15.3-44.8); MPV 8.5 fL (7.6-11.3); Monocytes % 8.3 % (3.3-12.3); RBC Red Blood Cell Count 4.05 M/uL (3.86-4.86)
[2017-08-12 05:23] LABS: Phosphorus 5.6 mg/dL (2.5-4.9); Potassium 3.5 mmol/L (3.5-5.1)
[2017-08-12] MEDS ORDERED: INSULIN -REGULAR HUMAN 50 UNIT/0.5 ML ML SQ SCH (07:30)
[2017-08-12] MEDS ORDERED: CALCIUM GLUC 10% INJ 9.3 MEQ in NA CHLORIDE 0.9% 100 ML IV ONE (08:21)
[2017-08-12] MEDS ORDERED: ALBUTEROL 2.5 MG/3 ML NEB SOL NEB PRN (08:23)
[2017-08-12] MEDS: HOME MED 1 EA UNK (Potassium [Potassium] 99 MG) PO SCH (09:00)
[2017-08-12] MEDS: VALSARTAN 160 MG TAB PO SCH (09:45)
[2017-08-12] MEDS: CETIRIZINE HCL 5 MG TABLET PO SCH (09:46)
[2017-08-12] MEDS: Pantoprazole (granules) 40 MG/BLIST PACKET FT SCH (09:46)
[2017-08-12] MEDS: CALCITROL 0.25 MCG CAP PO SCH ×2 (09:46→22:01)
[2017-08-12] MEDS: CYANOCOBALAMIN 1,000 MCG TAB PO SCH (09:46)
[2017-08-12] MEDS: ENOXAPARIN 30 MG/0.3 ML SQ SCH (09:47)
[2017-08-12] MEDS: NIACIN 500 MG SR TAB PO SCH (09:47)
[2017-08-12] MEDS: MAGNESIUM OXIDE 400 MG TAB PO SCH (09:48)
[2017-08-12] MEDS: CARVEDILOL 25 MG TAB PO SCH ×2 (09:48→22:00)
[2017-08-12] MEDS: hydroCHLOROthiazide 25 MG TAB PO SCH (09:49)
[2017-08-12] MEDS: GLIMEPIRIDE 2 MG TABLET PO SCH (09:49)
[2017-08-12] MEDS: DOCUSATE NA 100 MG CAP PO SCH (09:49)
[2017-08-12] MEDS: CALCIUM CARBONATE CHEW 500MG TAB PO SCH ×3 (10:53→22:01)
[2017-08-12] MEDS: JARDIANCE 25 MG PO SCH (10:54)
[2017-08-12] MEDS: ENSURE PUDDING 4 OZ CUP PO SCH ×3 (11:59→18:40)
[2017-08-12] MEDS: LORazepam 2 MG/ML VIAL IV PRN (13:22)
[2017-08-12 18:20] LABS: Albumin 3.2 g/dL (3.4-5.0); Magnesium 1.9 mg/dL (1.8-2.4)
[2017-08-12] MEDS: ATORVASTATIN 20 MG TAB PO SCH (22:01)
[2017-08-13 04:58] LABS: Albumin 2.9 g/dL (3.4-5.0); BUN Blood Urea Nitrogen 11 mg/dL (7-18); Bicarbonate 32 mmol/L (21-32); Glucose Level 106 mg/dL (74-106); Magnesium 1.9 mg/dL (1.8-2.4); Potassium 3.3 mmol/L (3.5-5.1); Sodium Level 139 mmol/L (136-145)
--- NOTE | 2017-08-13 05:59 | P.PN ---
Subjective Date of Service: 08/12/17 Chief Complaint: Perioral tingling and tingling in fingertips POD 5 TT with B VC paresis requiring secondary surgery for tracheotomy. Complains of difficulty sleeping last night and subjective SOB at times including this morning. Tolerating purees and nectar thick liquids and pills Physical Examination - Vital Signs Temperature: 98.8 F Blood Pressure: 113/67 Pulse: 81 Respirations: 20 Pulse Ox (%): 91 - Physical Exam General: Alert, In no apparent distress Neck: Other (6/0 CNF Shiley with good voicing around tube with finger occlusion. ) Respiratory: Crackles/rales, Expiratory wheezes - Studies 08/12/17 04:30: Calcium 7.2, Magnesium 2.0, Albumin 3.0. Corrected Ca 8.0 08/12/17 17:55: Calcium 8.1 L, Magnesium 1.9, Albumin 3.2 L Corrected Ca 8.74 Medications List Reviewed: Yes Assessment & Plan - Problems (Diagnosis) (1) Bilateral vocal cord paresis Onset Date: 08/10/17 Current Visit: Yes Status: Acute Plan: s/p trach. Watching waiting for spontaneous recovery. Continue work with ST for voicing. Trach care/HH papers signed and pending delivery. Albuterol PRN for wheezing. Demonstrated use of IS with patient - she admits she's not been using it. She demonstrated near independence in use with me at the bedside and is encouraged to use at least 4 times daily with 10 deep breaths and discussed purpose of us to prevent atelecatsis. She expressed understanding. (2) Airway obstruction, anatomic Onset Date: 08/10/17 Current Visit: Yes Status: Acute Plan: see plan for VC paresis (3) Thyroid cancer Onset Date: 08/10/17 Current Visit: Yes Status: Acute Plan: s/p total thyroidectomy. Pathology for confirmation and pathologic staging pending. Spoke with Endocrinologisy, Dr. Yaa Bland at [facility] regarding case. She recommends starting Cytomel for thyroid replacement until she can undergo formal evaluation. (4) Post-surgical hypothyroidism Onset Date: 08/10/17 Current Visit: Yes Status: Acute Plan: Start Cytomel 25mg PO daily (5) Post-surgical hypoparathyroidism Onset Date: 08/10/17 Current Visit: Yes Status: Acute Plan: Continue Ca, Mg, Alb q 12 hours. Goal is to have calcium stable on only PO meds for at least 24m ideally 48 hours prior to discharge. She continues to have borderline line corrected Marcus at 8 this morning. Gave 2 amps CaGluc and 2gm TID PO CaCarb and on 0.5mcg Calcitriol and Ca in evening was 8.1, but corrects to 8.74. Will see what AM labs look like and whether she continues to be symptomatic. (6) Aspiration into airway Onset Date: 08/10/17 Current Visit: Yes Status: Acute Plan: Doing OK with diet including pills. Continues to work with CATTLE SORTER. Qualifiers: Encounter type: subsequent encounter Qualified Code(s): T17.908D - Unspecified foreign body in respiratory tract, part unspecified causing other injury, subsequent encounter (7) Diabetes mellitus Onset Date: 08/10/17 Current Visit: Yes Status: Acute Plan: Blood glucose range is between 80-150. Currently well controlled on home medications. Blood sugars have all been well controlled. Stop FSBG and insulin sliding scale at this time. Qualifiers: Diabetes mellitus type: type 2 Diabetes mellitus intermediate manager insulin use: without intermediate manager use Diabetes mellitus complication detail: with nephropathy (8) Hypertension Onset Date: 08/10/17 Current Visit: Yes Status: Acute Plan: Controlled with home medications. No changes indicated at this time. Qualifiers: Hypertension type: essential hypertension Qualified Code(s): I10 - Essential (primary) hypertension (9) At high risk for deep venous thrombosis Onset Date: 08/10/17 Current Visit: Yes Status: Acute Plan: SCDs in place. Tolerating Lovenox without issues. Continue for now. PT working with patient for ambulation. Now that IV and feeding tubes are not connected, it should be easier for her to ambulate and she is encouraged to get up and walk around on her own if cleared for that by PT. (10) At risk for constipation Onset Date: 08/10/17 Current Visit: Yes Status: Acute Plan: No BM yesterday. If no BM today, will discuss additional therapy Plan to discharge in: 48 Hours (pending calcium stability)
[2017-08-13] MEDS: NIACIN 500 MG SR TAB PO SCH (08:04)
[2017-08-13] MEDS: ENSURE PUDDING 4 OZ CUP PO SCH ×3 (08:10→16:30)
[2017-08-13] MEDS: POTASSIUM CL 40 MEQ in NA CHLORIDE 0.9% 500 ML IV SCH ×2 (08:10→15:25)
[2017-08-13] MEDS: HOME MED 1 EA UNK (Potassium [Potassium] 99 MG) PO SCH (09:00)
[2017-08-13] MEDS: ENOXAPARIN 30 MG/0.3 ML SQ SCH (09:26)
[2017-08-13] MEDS: JARDIANCE 25 MG PO SCH (09:27)
[2017-08-13] MEDS: CALCIUM CARBONATE CHEW 500MG TAB PO SCH ×3 (09:28→20:57)
[2017-08-13] MEDS: MAGNESIUM OXIDE 400 MG TAB PO SCH (09:28)
[2017-08-13] MEDS: CALCITROL 0.25 MCG CAP PO SCH ×2 (09:28→20:57)
[2017-08-13] MEDS: LIOTHYRONINE SOD 25 MCG TAB PO SCH (09:28)
[2017-08-13] MEDS: VALSARTAN 160 MG TAB PO SCH (09:29)
[2017-08-13] MEDS: CARVEDILOL 25 MG TAB PO SCH ×2 (09:30→20:57)
[2017-08-13] MEDS: DOCUSATE NA 100 MG CAP PO SCH (09:30)
[2017-08-13] MEDS: CETIRIZINE HCL 5 MG TABLET PO SCH (09:30)
[2017-08-13] MEDS: hydroCHLOROthiazide 25 MG TAB PO SCH (09:30)
[2017-08-13] MEDS: GLIMEPIRIDE 2 MG TABLET PO SCH (09:30)
[2017-08-13] MEDS: Pantoprazole (granules) 40 MG/BLIST PACKET FT SCH (09:31)
[2017-08-13] MEDS: CYANOCOBALAMIN 1,000 MCG TAB PO SCH (09:31)
[2017-08-13] MEDS: SERTRALINE HCL 50 MG TAB PO SCH (10:13)
[2017-08-13 17:23] LABS: Albumin 3.3 g/dL (3.4-5.0)
[2017-08-13] MEDS: ATORVASTATIN 20 MG TAB PO SCH (20:56)
[2017-08-13] MEDS: LORazepam 2 MG/ML VIAL IV PRN (21:09)
[2017-08-13] MEDS: IBUPROFEN 100 MG/5 ML UCUP PO PRN (21:18)
--- NOTE | 2017-08-13 21:46 | P.PN ---
Subjective Date of Service: 08/13/17 Chief Complaint: No symptoms of hypoCa overnight or during the morning & afternoon POD 6 TT with B VC paresis requiring secondary surgery for tracheotomy. Had BM yesterday. Tolerating diet. Ambulating with PT. Physical Examination - Vital Signs Temperature: 98.3 F Blood Pressure: 149/76 Pulse: 80 Respirations: 17 Pulse Ox (%): 93 - Physical Exam General: Alert, In no apparent distress HEENT: Atraumatic, Normocephalic Neck: Other (6.[address] without distress. Tolerating finger occlusion and PMV placed briefly and independently during examination) - Studies 08/13/17 16:50: Calcium 8.1 L, Magnesium 2.0, Albumin 3.3 L CORRECTED CA = 8.66 08/13/17 04:25: Sodium 139, Potassium 3.3 L, Chloride 102, Carbon Dioxide 32, BUN 11, Creatinine 0.60, Estimated GFR > 90, Glucose 106, Calcium 7.6 L, Magnesium 1.9, Albumin 2.9 L CORRECTED CA = 8.48 Medications List Reviewed: Yes Assessment & Plan - Problems (Diagnosis) (1) Bilateral vocal cord paresis Onset Date: 08/10/17 Current Visit: Yes Status: Acute Plan: s/p trach. Watching waiting for spontaneous recovery. Continue work with for voicing. [facility]/ papers signed and pending delivery. [facility] called her this morning and she's hoping for delivery tomorrow Albuterol PRN for wheezing - not needed since patient's been using IS consistently and independently. Patient expressed confidence in removing, cleaning and replacing inner canula but not suctioning. Encouraged her to ask for guidance and practice with RT to become independent with suctioning over the next 24 hours. (2) Airway obstruction, anatomic Onset Date: 08/10/17 Current Visit: Yes Status: Acute Plan: see plan for VC paresis (3) Thyroid cancer Onset Date: 08/10/17 Current Visit: Yes Status: Acute Plan: s/p total thyroidectomy. Started Cytomel today. Reviewed pathology results in detail with the patient this morning. T2 N1 Mx ( Stage 3), but low risk features according to JULIO C guidelines pending whole body WADE scan to confirm M staging. Given age and micro-mets, I would suspect she is a candidate for WADE. Plan for Endocrine evaluation following discharge home. 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 Reviewed hospital course, plans and pathology/staging in detail with patient's sister this afternoon (4) Post-surgical hypothyroidism Onset Date: 08/10/17 Current Visit: Yes Status: Acute Plan: Continue Cytomel 25mg PO daily (5) Post-surgical hypoparathyroidism Onset Date: 08/10/17 Current Visit: Yes Status: Acute Plan: Continue Ca, Mg, Alb q 12 hours. Goal is to have calcium stable on only PO meds for at least 24h, ideally 48 hours, prior to discharge. AM Corrected Ca is 8.48, afternoon valve is 8.66 (corrected) with no IV Ca since Thursday morning. At morning and afternoon rounds, the patient is without sx of HypoCa and Chosveks sign is negative. If AM and PM labs on Thursday remain stable, will plan d/c on 2gm CaCarb PO TID and Calcitriol 0.5mcg BID. (6) Aspiration into airway Onset Date: 08/10/17 Current Visit: Yes Status: Acute Plan: Doing OK with diet including pills, prefers nectar thick liquids. Family asking about source for thickener - defer to [employer]. I believe it's available OTC without Rx. 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 Qualifiers: Encounter type: subsequent encounter Qualified Code(s): T17.908D - Unspecified foreign body in respiratory tract, part unspecified causing other injury, subsequent encounter (7) Diabetes mellitus Onset Date: 08/10/17 Current Visit: Yes Status: Acute Plan: Continue home medications. Qualifiers: Diabetes mellitus type: type 2 Diabetes mellitus terminal clerk insulin use: without shelter use Diabetes mellitus complication detail: with nephropathy (8) Hypertension Onset Date: 08/10/17 Current Visit: Yes Status: Acute Plan: Controlled with home medications. No changes indicated at this time. Qualifiers: Hypertension type: essential hypertension Qualified Code(s): I10 - Essential (primary) hypertension (9) At high risk for deep venous thrombosis Onset Date: 08/10/17 Current Visit: Yes Status: Acute Plan: SCDs in place. Tolerating Lovenox without issues. Continue for now. PT working with patient for ambulation. Now that IV and feeding tubes are not connected, it should be easier for her to ambulate and she is encouraged to get up and walk around on her own if cleared for that by PT. No indication to continue Lovenox on outpatient basis. (10) At risk for constipation Onset Date: 08/10/17 Current Visit: Yes Status: Acute Plan: BM per patient. Continue daily Colace while on narcotics. No narcotics given today or yesterday per APR. Pain medication including Ibuprofen given this evening. Pain levels overall seem to be decreasing as expected for POD 6. Plan to discharge in: 24 Hours (if Ca stable on Thursday on PO meds and if all trach supplies delivered to patient's home/room. Discussed with patient/sister regarding plans to d/c home. She's too functional and independent to require visual merchandising director senior living care. If she can be confident with trach care, I think she will do well at home with nursing visits for a short period of time.) Time Spent Managing Pts Care (In Minutes): 75 (including AM and noon rounds with patient/family counselling)
[2017-08-14 05:19] LABS: BUN Blood Urea Nitrogen 11 mg/dL (7-18); Bicarbonate 30 mmol/L (21-32); Glucose Level 106 mg/dL (74-106); Magnesium 2.1 mg/dL (1.8-2.4); Potassium 3.6 mmol/L (3.5-5.1); Sodium Level 141 mmol/L (136-145)
[2017-08-14] MEDS: ENSURE PUDDING 4 OZ CUP PO SCH ×3 (07:30→17:02)
[2017-08-14] MEDS: DOCUSATE NA 100 MG CAP PO SCH (08:57)
[2017-08-14] MEDS: VALSARTAN 160 MG TAB PO SCH (09:00)
[2017-08-14] MEDS ORDERED: CALCITROL 0.25 MCG CAP PO SCH (09:00)
[2017-08-14] MEDS: HOME MED 1 EA UNK (Potassium [Potassium] 99 MG) PO SCH (09:00)
[2017-08-14] MEDS: CARVEDILOL 25 MG TAB PO SCH (09:07)
[2017-08-14] MEDS: hydroCHLOROthiazide 25 MG TAB PO SCH (09:08)
[2017-08-14] MEDS: CYANOCOBALAMIN 1,000 MCG TAB PO SCH (09:09)
[2017-08-14] MEDS: MAGNESIUM OXIDE 400 MG TAB PO SCH (09:10)
[2017-08-14] MEDS: SERTRALINE HCL 50 MG TAB PO SCH (09:10)
[2017-08-14] MEDS: Pantoprazole (granules) 40 MG/BLIST PACKET FT SCH (09:10)
[2017-08-14] MEDS: GLIMEPIRIDE 2 MG TABLET PO SCH (09:11)
[2017-08-14] MEDS: ENOXAPARIN 30 MG/0.3 ML SQ SCH (09:11)
[2017-08-14] MEDS: CALCIUM CARBONATE CHEW 500MG TAB PO SCH ×2 (09:11→14:26)
[2017-08-14] MEDS: LIOTHYRONINE SOD 25 MCG TAB PO SCH (09:12)
[2017-08-14] MEDS: JARDIANCE 25 MG PO SCH (09:13)
[2017-08-14] MEDS: CETIRIZINE HCL 5 MG TABLET PO SCH (09:18)
[2017-08-14] MEDS: IBUPROFEN 100 MG/5 ML UCUP PO PRN (11:27)
--- NOTE | 2017-08-14 16:39 | P.PN ---
Subjective Date of Service: 08/14/17 Chief Complaint: No symptoms of hypoCa yesterday or overnight POD 6 TT with B VC paresis requiring secondary surgery for tracheotomy. Had BM yesterday. Tolerating diet. Ambulating with PT. Working with VEHICLE RETURN ASSOCIATE. Trach supplies delivered to patient's home later yesterday afternoon. Physical Examination - Vital Signs Temperature: 97.0 F Blood Pressure: 114/59 Pulse: 70 Respirations: 19 Pulse Ox (%): 95 - Physical Exam General: Alert, In no apparent distress HEENT: Atraumatic Neck: Other (Trach in place, clean. PMV in place.) - Studies Laboratory Data (last 24 hrs) 08/14/17 04:40: Sodium 141, Potassium 3.6, BUN 11, Creatinine 0.60, Glucose 106 , Magnesium 2.1 08/13/17 16:50: Magnesium 2.0 Medications List Reviewed: Yes Assessment & Plan - Problems (Diagnosis) (1) Bilateral vocal cord paresis Onset Date: 08/10/17 Current Visit: Yes Status: Acute Plan: s/p trach. Watching waiting for spontaneous recovery. Danielle has become much more comfortable with trach care and feels confident enough to go home. (2) Airway obstruction, anatomic Onset Date: 08/10/17 Current Visit: Yes Status: Acute Plan: see plan for VC paresis (3) Thyroid cancer Onset Date: 08/10/17 Current Visit: Yes Status: Acute Plan: s/p total thyroidectomy. Continue Cytomel. RT2 N1 Mx (Stage 3), but low risk features according to JULIO C guidelines pending whole body WADE scan to confirm M staging. Plan for outpatient endocrine evaluation for WADE. (4) Post-surgical hypothyroidism Onset Date: 08/10/17 Current Visit: Yes Status: Acute Plan: Continue Cytomel 25mg PO daily (5) Post-surgical hypoparathyroidism Onset Date: 08/10/17 Current Visit: Yes Status: Acute Plan: Corrected Ca stable and patient without s/sx of hypoCa today. No IV Ca given > 48h. PTH today is low but detectable. Will decrease calcitriol to 0.25mg BID to avoid iatrogenic suppression. Continue PO Ca for now, will begin to wean this as an outpatient. (6) Aspiration into airway Onset Date: 08/10/17 Current Visit: Yes Status: Acute Plan: Doing OK with diet including pills, prefers nectar thick liquids. Patient doing well in VEHICLE RETURN ASSOCIATE sessions. Will assess need for outpatient therapy during first office visit after discharge Qualifiers: Encounter type: subsequent encounter Qualified Code(s): T17.908D - Unspecified foreign body in respiratory tract, part unspecified causing other injury, subsequent encounter (7) Diabetes mellitus Onset Date: 08/10/17 Current Visit: Yes Status: Acute Plan: Continue home medications. Qualifiers: Diabetes mellitus type: type 2 Diabetes mellitus hematology technologist insulin use: without senior care use Diabetes mellitus complication detail: with nephropathy (8) Hypertension Onset Date: 08/10/17 Current Visit: Yes Status: Acute Plan: Controlled with home medications. No changes indicated at this time. Qualifiers: Hypertension type: essential hypertension Qualified Code(s): I10 - Essential (primary) hypertension (9) At high risk for deep venous thrombosis Onset Date: 08/10/17 Current Visit: Yes Status: Acute Plan: No s/sx DVT. No indication to continue Lovenox on outpatient basis. (10) At risk for constipation Onset Date: 08/10/17 Current Visit: Yes Status: Acute Plan: Patient doing well and deferred Colace this AM. No narcotics for >48 hours so this is appropriate. Discharge Plan: Home Plan to discharge in: 24 Hours (today after 5 PM labs if she is continuing to do well.)
[2017-08-14 17:32] LABS: Albumin 3.4 g/dL (3.4-5.0); Magnesium 2.4 mg/dL (1.8-2.4)
[2017-08-15 13:35] LABS: Vitamin D 1,25-Dihydroxy Total 61 pg/mL (18-72); Vitamin D,1,25-OH2, D2 <8 pg/mL
[2017-08-17] MEDS ORDERED: DRISDOL (VITAMIN D=ERGOCALCIFEROL) 50000 UNIT CAP PO SCH (09:00)
--- NOTE | 2017-08-21 02:24 | DS ---
Date of Discharge: 08/14/2017 Admission Diagnoses: Airway obstruction, bilateral vocal cord paresis, status post tracheostomy, hyp oparathyroidism, postsurgical. Discharge Diagnoses: Airway obstruction, bilateral vocal cord paresis, status post tracheostomy, hyp oparathyroidism, postsurgical with thyroid cancer, hypocalcemia. Hospital Course: The patient underwent total thyroidectomy for suspicious thyroid nodule on July h. Upon extubation, she was noted to have stridor briefly, but then her breathing became quieter. S he was carefully observed in the post surgical unit for approximately 2-1/2 hours, although clinicall y she appeared stable. Subjectively, she complained of airway obstruction. A flexible laryngoscopy was performed at the bedside, which revealed minimal movement of the bilateral vocal folds, both of w hich were in the paramedian position and with deep inspiration, paradoxical vocal cord movement was n oted. The decision was made with the patient to perform an elective tracheostomy. She subsequently underwent tracheostomy in the afternoon of August 07 and was admitted to the ICU for close monitoring and fresh trach precautions. Her postoperative PTH was less than 4, and her calcium levels were car efully monitored. Her preoperative calcium level was elevated at 11.4, but over the subsequent 24 ho urs, her calcium level fell to 7.8. She was started on calcitriol and oral calcium and was kept on D obhoff tube feeds through the weekend due to risk of aspiration. Over the subsequent 4 days, she req uired multiple doses of IV calcium gluconate and underwent monitoring of her calcium every 12 hours d ue to need for these interventions. A PICC line was placed. She underwent a bedside swallow and a m odified barium swallow with speech pathology on Thursday, the which indicated difficulty with a pi ll which got lodged in the vallecula with thoughts of the Dobhoff tube being present complicating and exacerbating this issue. Upon the advice of the speech therapist, the Dobhoff tube was removed and the patient was started on oral liquids. She was more comfortable with thickened liquids but trialed small sips of thin liquids intermittently through her hospital stay. Arrangements were made with [facility] and Case Management to obtain tracheostomy care supplies in preparation for discharge. The patient was instructed with the nursing and respiratory therapy staff for care of th e tracheostomy tube. On postoperative day 4, the patient's trach was changed from a 6 low-pressure c uff to a 4 cuffless, but the patient had subjective shortness of breath. A 6 cuffless tube was not a vailable at the time and a 6 fenestrated cuffless tube was placed. Over several days, the patient wa s instructed with speech pathology to work with a Passy Afua valve which she did begin to tolerate th e patient was also evaluated by physical therapy to aid in mobilization. On the day of discharge, claudia silver was ambulating well. She was tolerating oral diet with a preference for thickened liquids. He r calcium level was stable in the range of 7.9-8.7, but was higher when corrected for her albumin lev els and was stable with no need for IV calcium for 48 hours. In addition on the day of discharge, he r parathyroid hormone had increased to 10.4, indicating early recovery of parathyroid function. The multiple conversations were undertaken with the patient and her sister regarding the complexity of th e surgery and its outcomes. We had a lengthy discussion regarding the pathology report which confirm ed a 3-cm papillary thyroid cancer without aggressive features, but did include 5 very tiny lymph nod es, 1 of which had a 1-mm foci of metastatic papillary cancer. In addition, there was a right parath yroid adenoma which was clinically suspected at the time of surgery and likely contributed to her tra nsient hypoparathyroidism. The patient will be discharged to home and follow up with Dr. Alex chowdhury. List of medications is reviewed. Her calcitriol and calcium will be slowly weaned over the next several weeks as her parathyroid function continues to improve. She will be monitored on a shayan hly basis for return of vocal cord function with no immediate plans for intervention. If she has no return of vocal cord function after 6 months, additional procedures may be indicated. The patient's return to work is pending at this point based on her current medical condition. Outpatient evaluatio n with Endocrinology will be arranged. JUAN/ABBEY Voice ID: [id number] Report ID: [id number]
== END 2017-08-14 20:03 | disposition home health service (06) | DRG 12 ==
LOC: OR 10:35 → 3RD-ICU 15:39 → INTOOBSV 15:39 → OBSVTOIN 08-08 10:04 → 4TH 08-09 11:48
PROVIDERS: ADMIT Otolaryngology; ATTEND Otolaryngology
PROC: 0BJ10ZZ Inspection of Trachea, Open Approach (ICD-10-PCS; 2017-08-07)
PROC: 0GTK0ZZ Resection of Thyroid Gland, Open Approach (ICD-10-PCS; 2017-08-07)
PROC: 0CJS8ZZ Inspection of Larynx, Via Natural or Artificial Opening Endoscopic (ICD-10-PCS; 2017-08-07)
PROC: 0B110F4 Bypass Trachea to Cutaneous with Tracheostomy Device, Open Approach (ICD-10-PCS; principal; 2017-08-07 12:45)
PROC: 02HV33Z Insertion of Infusion Device into Superior Vena Cava, Percutaneous Approach (ICD-10-PCS; 2017-08-10)
PROC: 0B21XFZ Change Tracheostomy Device in Trachea, External Approach (ICD-10-PCS; 2017-08-11)
DX: J38.02 Paralysis of vocal cords and larynx, bilateral (principal); C77.0 Secondary and unspecified malignant neoplasm of lymph nodes of head, face and neck; C73 Malignant neoplasm of thyroid gland; E89.2 Postprocedural hypoparathyroidism; Y83.6 Removal of other organ (partial) (total) as the cause of abnormal reaction of the patient, or of later complication, without mention of misadventure at the time of the procedure; Y92.234 Operating room of hospital as the place of occurrence of the external cause; I10 Essential (primary) hypertension; E89.0 Postprocedural hypothyroidism; E11.40 Type 2 diabetes mellitus with diabetic neuropathy, unspecified; E11.21 Type 2 diabetes mellitus with diabetic nephropathy; T17.920A Food in respiratory tract, part unspecified causing asphyxiation, initial encounter; E83.51 Hypocalcemia; D35.1 Benign neoplasm of parathyroid gland; E66.9 Obesity, unspecified; E78.00 Pure hypercholesterolemia, unspecified; J98.8 Other specified respiratory disorders; Z88.1 Allergy status to other antibiotic agents; Z88.0 Allergy status to penicillin; Z79.84 Long term (current) use of oral hypoglycemic drugs; Z79.82 Long term (current) use of aspirin; Z68.32 Body mass index [BMI] 32.0-32.9, adult
CPT/HCPCS: 36415; 71045; 74018; 74230; 80048; 82040; 82306; 82310; 82652; 82962; 83735; 83970; 84100; 84155; 85025; 88305; 88307; 93005; 94640; 97163; J0330; J0610; J1100; J1650; J2250; J2405; J2710; J3010; J3475; J7030

== ENCOUNTER 2017-08-16 01:51 | Emergency (ER) | payer BC ==
--- NOTE | 2017-08-16 03:21 | ER ---
Nurse's Notes [facility] Name: Danielle Martinez Age: 56 yrs Sex: Female : 1960 Arrival Date: 08/16/2017 Time: 01:51 Bed 5 Private MD: Emma Johnson J; Jagjit Beverly S Diagnosis: Tracheostomy complications Presentation: 08/16 01:55 Presenting complaint: Patient states: that she had a thyroidectomy 1 week ago, post fc that she was having trouble breathing so they placed a trach. Done by Dr Johnson. She was discharged from here Thursday night. Since then she has had increased trouble breathing along with wheezing and a cough. She is also having to clean inner cannula q 2 hrs due to increased bloody drainage. Transition of care: patient was not received from another setting of care. Onset of symptoms was August 15, 2017. Risk Assessment: Do you want to hurt yourself or someone else? Patient reports no desire to harm self or others. Initial Sepsis Screen: Does the patient meet any 2 criteria? No. Patient's initial sepsis screen is negative. Does the patient have a suspected source of infection? No. Patient's initial sepsis screen is negative. Care prior to arrival: None. 01:55 Method Of Arrival: Ambulatory 01:55 Acuity: RUSSELL 3 fc Historical: - Allergies: 02:12 PENICILLINS; fc 02:12 Biaxin; fc - Home Meds: 02:19 niacin 500 mg Oral cpER once daily [Active]; magnesium oxide 400 mg oral tab daily fc [Active]; multivitamin oral tab daily [Active]; Jardiance 25 mg oral tab 1 tab once daily [Active]; gabapentin 600 mg oral tab 1 tab daily [Active]; glimepiride 2 mg Oral tab 1 tab once daily [Active]; Prevacid 30 mg Oral cpDR 1 cap once daily [Active]; valsartan-hydrochlorothiazide 320-25 mg oral tab 1 tab once daily [Active]; simvastatin 40 mg Oral tab 1 tab once daily [Active]; potassium chloride 99 mg Oral once daily [Active]; calcitriol 0.25 mcg oral cap 1 cap once daily [Active]; Tums 1000 mg Oral three times a day [Active]; Cytomel 25 mcg Oral tab 1 tab once daily [Active]; Zoloft 50 mg Oral tab 1 tab once daily [Active]; aspirin 81 mg Oral TbEC 1 tab once daily [Active]; Coreg 50 mg Oral 1 tab 2 times per day [Active]; Zyrtec 10 mg Oral tab 1 tab once daily [Active]; Vitamin B-12 1,000 mcg oral tab daily [Active]; - PMHx: 02:19 thyroid cancer; Diabetes - NIDDM; GERD; Hypertension; High Cholesterol; fc - PSHx: 02:19 Thyroidectomy; trach; fc - Immunization history:: Last tetanus immunization: unknown. - Social history:: Smoking status: Patient/guardian denies using tobacco. - Ebola Screening: : Patient negative for fever greater than or equal to 101.5 degrees Fahrenheit, and additional compatible Ebola Virus Disease symptoms Patient denies exposure to infectious person Patient denies travel to an Ebola-affected area in the 21 days before illness onset. Screenin:11 Abuse screen: Denies threats or abuse. Nutritional screening: No deficits noted. fc Tuberculosis screening: No symptoms or risk factors identified. 03:20 Fall Risk None identified. tl2 Assessment: 01:55 General: Appears in no apparent distress. uncomfortable, Behavior is calm, cooperative, tl2 appropriate for age. Pain: Denies pain. Cardiovascular: Denies chest pain. Respiratory: Airway is patent Respiratory effort is even, unlabored, Respiratory pattern is regular, symmetrical, Pt states that she can breathe in but she has to move the trach device in order to breathe out. States she feels like there is still swelling and they have to clean the trach every 2 hours due to blood and secretions. GI: No signs and/or symptoms were reported involving the gastrointestinal system. : No signs and/or symptoms were reported regarding the genitourinary system. Derm: Skin is pink, warm \T\ dry. 03:00 Reassessment: RT at bedside cleaning trach. tl2 03:38 Reassessment: Patient appears in no apparent distress at this time. Patient and/or tl2 family updated on plan of care and expected duration. Pain level reassessed. Patient is alert, oriented x 3, equal unlabored respirations, skin warm/dry/pink. Pt verbalized understanding of discharge instructions, need for follow up and trach care. Vital Signs: 01:55 BP 118 / 78; Pulse 65; Resp 22; Temp 98.9(O); Pulse Ox 96% on R/A; Weight 93.44 kg (R); Height 5 ft. 7 in. (170.18 cm) (R); Pain 5/10; 03:18 BP 123 / 76; Pulse 58; Resp 18; Pulse Ox 96% on R/A; tl2 03:38 BP 138 / 85; Pulse 61; Resp 18; Pulse Ox 97% on R/A; tl2 01:55 Body Mass Index 32.26 (93.44 kg, 170.18 cm) ED Course: 01:51 Patient arrived in ED. ds1 01:52 Emma Johnson MD is Private Physician. ds1 01:52 Jagjit Beverly MD is Private Physician. ds1 01:55 Arm band placed on Patient placed in an exam room, on a stretcher. fc 02:07 Estuardo Disla MD is Attending Physician. ps1 02:10 Triage completed. fc 02:11 Patient has correct armband on for positive identification. Placed in gown. Bed in low fc position. Call light in reach. 03:19 Emma Johnson MD is Referral Physician. ps1 03:21 Sarina Pickard RN is Primary Nurse. tl2 03:38 No provider procedures requiring assistance completed. Patient did not have IV access tl2 during this emergency room visit. Administered Medications: 03:34 Drug: Decadron - Dexamethasone 10 mg {Note: given PO in juice.} Route: IVP; Site: Other;tl2 03:40 Follow up: Response: No adverse reaction; Medication administered at discharge. tl2 Outcome: 03:20 Discharge ordered by . ps1 03:38 Discharged to home ambulatory, with family. tl2 03:38 Condition: stable 03:38 Discharge instructions given to patient, Instructed on discharge instructions, follow up and referral plans. Demonstrated understanding of instructions, follow-up care. 03:40 Patient left the ED. tl2 Signatures: Opal Garcia RN RN Brit Reyez ds1 Sarina Pickard, RN RN tl2 Estuardo Disla MD MD ps1
--- NOTE | 2017-08-16 03:21 | EDPHYS ---
Physician Documentation [facility] Name: Danielle Martinez Age: 56 yrs Sex: Female : 1960 Arrival Date: 08/16/2017 Time: 01:51 Bed 5 Private MD: Emma Johnson J; Jagjit Beverly S ED Physician Estuardo Disla HPI: 08/16 03:06 This 56 yrs old Female presents to ER via Ambulatory with complaints of ps1 Breathing Difficulty. 03:06 patient has a recent tracheostomy for complications of thyroidectomy. States her vocal ps1 cords would not relax>? laryngospasm. She had difficulty with the tracheostomy placement since, complaining of having to elevate the tracheostomy. Discomfort improves with elevating the trach. States she is having increased secretions. . Historical: - Allergies: 02:12 PENICILLINS; fc 02:12 Biaxin; fc - Home Meds: 02:19 niacin 500 mg Oral cpER once daily [Active]; magnesium oxide 400 mg oral tab daily fc [Active]; multivitamin oral tab daily [Active]; Jardiance 25 mg oral tab 1 tab once daily [Active]; gabapentin 600 mg oral tab 1 tab daily [Active]; glimepiride 2 mg Oral tab 1 tab once daily [Active]; Prevacid 30 mg Oral cpDR 1 cap once daily [Active]; valsartan-hydrochlorothiazide 320-25 mg oral tab 1 tab once daily [Active]; simvastatin 40 mg Oral tab 1 tab once daily [Active]; potassium chloride 99 mg Oral once daily [Active]; calcitriol 0.25 mcg oral cap 1 cap once daily [Active]; Tums 1000 mg Oral three times a day [Active]; Cytomel 25 mcg Oral tab 1 tab once daily [Active]; Zoloft 50 mg Oral tab 1 tab once daily [Active]; aspirin 81 mg Oral TbEC 1 tab once daily [Active]; Coreg 50 mg Oral 1 tab 2 times per day [Active]; Zyrtec 10 mg Oral tab 1 tab once daily [Active]; Vitamin B-12 1,000 mcg oral tab daily [Active]; - PMHx: 02:19 thyroid cancer; Diabetes - NIDDM; GERD; Hypertension; High Cholesterol; fc - PSHx: 02:19 Thyroidectomy; trach; fc - Immunization history:: Last tetanus immunization: unknown. - Social history:: Smoking status: Patient/guardian denies using tobacco. - Ebola Screening: : Patient negative for fever greater than or equal to 101.5 degrees Fahrenheit, and additional compatible Ebola Virus Disease symptoms Patient denies exposure to infectious person Patient denies travel to an Ebola-affected area in the 21 days before illness onset. ROS: 03:06 Constitutional: Negative for fever, chills, and weight loss, Eyes: Negative for injury, ps1 pain, redness, and discharge, Cardiovascular: Negative for chest pain, palpitations, and edema, Respiratory: Negative for shortness of breath, cough, wheezing, and pleuritic chest pain, Abdomen/GI: Negative for abdominal pain, nausea, vomiting, diarrhea, and constipation, MS/Extremity: Negative for injury and deformity, Skin: Negative for injury, rash, and discoloration. 03:06 ENT: Positive for sore throat. Exam: 03:06 Constitutional: This is a well developed, well nourished patient who is awake, alert, ps1 and in no acute distress. Head/Face: Normocephalic, atraumatic. Chest/axilla: Normal chest wall appearance and motion. Nontender with no deformity. No lesions are appreciated. Cardiovascular: Regular rate and rhythm. No gallops, murmurs, or rubs. Normal PMI, no JVD. No pulse deficits. Respiratory: Lungs have equal breath sounds bilaterally, clear to auscultation and percussion. No rales, rhonchi or wheezes noted. No increased work of breathing, no retractions or nasal flaring. Abdomen/GI: Soft, non-tender, with normal bowel sounds. No distension or tympany. No guarding or rebound. No evidence of tenderness throughout. Skin: Warm, dry with normal turgor. Normal color with no rashes, no lesions, and no evidence of cellulitis. MS/ Extremity: Pulses equal, no cyanosis. Neurovascular intact. Full, normal range of motion. Neuro: Awake and alert, GCS 15, oriented to person, place, time, and situation. Cranial nerves II-XII grossly intact. Sensory grossly intact. Psych: Awake, alert, with orientation to person, place and time. Behavior, mood, and affect are within normal limits. 03:06 ENT: tracheostomy is patent. Able to move air appropriately. Strong cough. Symptoms improved with placement of gauze underneath the inferior aspect of the trach collar. . Vital Signs: 01:55 BP 118 / 78; Pulse 65; Resp 22; Temp 98.9(O); Pulse Ox 96% on R/A; Weight 93.44 kg (R); fc Height 5 ft. 7 in. (170.18 cm) (R); Pain 5/10; 03:18 BP 123 / 76; Pulse 58; Resp 18; Pulse Ox 96% on R/A; tl2 03:38 BP 138 / 85; Pulse 61; Resp 18; Pulse Ox 97% on R/A; tl2 01:55 Body Mass Index 32.26 (93.44 kg, 170.18 cm) fc MDM: 02:35 Patient medically screened. ps1 03:06 Data reviewed: vital signs, nurses notes. ED course: symptoms improved after elevating ps1 trach. No bleeding or fistula evidenced. Will give decadron for swelling. . Administered Medications: 03:34 Drug: Decadron - Dexamethasone 10 mg {Note: given PO in juice.} Route: IVP; Site: Other;tl2 03:40 Follow up: Response: No adverse reaction; Medication administered at discharge. tl2 Disposition: 08/16/17 03:20 Discharged to Home. Impression: Tracheostomy complications. - Condition is Stable. - Discharge Instructions: Care of a Tracheostomy Tube, [id number]. - Medication Reconciliation Form, Thank You Letter, Antibiotic Education, Prescription Opioid Use form. - Follow up: Emma Johnson MD; When: 1 - 2 days; Reason: Recheck today's complaints, Continuance of care, Re-evaluation by your physician. Follow up: Emergency Department; When: As needed; Reason: Trouble breathing, Worsening of condition. - Problem is an ongoing problem. - Symptoms have improved. Signatures: Opal Garcia RN RN Sarina Pickard RN RN tl2 Estuardo Disla MD MD ps1 Corrections: (The following items were deleted from the chart) 03:40 03:20 08/16/2017 03:20 Discharged to Home. Impression: Tracheostomy complications. tl2 Condition is Stable. Forms are Medication Reconciliation Form, Thank You Letter, Antibiotic Education, Prescription Opioid Use. Follow up: Emma Johnson; When: 1 - 2 days; Reason: Recheck today's complaints, Continuance of care, Re-evaluation by your physician. Follow up: Emergency Department; When: As needed; Reason: Trouble breathing, Worsening of condition. Problem is an ongoing problem. Symptoms have improved. ps1
[2017-08-16] MEDS ORDERED: DEXAMETHASONE 10 MG/ML VIAL ONE (03:33)
== END 2017-08-16 03:40 | disposition home or self-care (01) ==
LOC: ER 01:51
DX: J95.03 Malfunction of tracheostomy stoma (principal); Y83.8 Other surgical procedures as the cause of abnormal reaction of the patient, or of later complication, without mention of misadventure at the time of the procedure; Y81.8 Miscellaneous general- and plastic-surgery devices associated with adverse incidents, not elsewhere classified; Y92.9 Unspecified place or not applicable; Z88.0 Allergy status to penicillin; Z88.8 Allergy status to other drugs, medicaments and biological substances; E11.9 Type 2 diabetes mellitus without complications; Z79.84 Long term (current) use of oral hypoglycemic drugs; I10 Essential (primary) hypertension; E78.00 Pure hypercholesterolemia, unspecified; K21.9 Gastro-esophageal reflux disease without esophagitis; Z85.850 Personal history of malignant neoplasm of thyroid
CPT/HCPCS: 96374; 99283; J1100

== ENCOUNTER → 2018-05-05 | Day surgery (SDC) | payer BC ==
--- OUTSIDE RECORDS SUMMARY | 2018-05-05 09:48 | XMS REPORT | Clinical Summary ---
:1960 Author Organization [facility] Address [address] [place] [id number] Care Team Providers Name Role Phone Jagjit Bveerly MD Primary Care Provider Allergies Active Allergy Reactions Severity Noted Date Comments Clarithromycin Other (See Comments) Medium 03/25/2018 Fever, diarrhea Penicillins Rash Low 03/25/2018 Medications Medication Sig Dispensed Refills Start Date End Date Status carvedilol (COREG) 25 MG 0 03/23/2018 Active tablet JARDIANCE 25 mg tablet 0 03/23/2018 Active gabapentin (NEURONTIN) 600 0 03/01/2018 Active mg tablet glimepiride (AMARYL) 2 MG 0 03/23/2018 Active tablet hydroCHLOROthiazide 0 03/19/2018 Active (HYDRODIURIL) 25 MG tablet lansoprazole (PREVACID) 30 0 03/05/2018 Active MG capsule levothyroxine (SYNTHROID, 0 01/21/2018 Active LEVOXYL) 150 mcg tablet olmesartan (BENICAR) 40 MG 0 03/19/2018 Active tablet simvastatin (ZOCOR) 40 MG 0 03/01/2018 Active tablet aspirin (ECOTRIN) 81 MG Take 81 mg by 0 Active enteric coated tablet mouth daily. cetirizine (ZyrTEC) 10 MG Take 10 mg by 0 Active tablet mouth daily. Active Problems Not on file Encounters Date Type Specialty Care Team Description 03/25/2018 Office Visit Otolaryngology Natasha Spicer MD Subglottic stenosis (Primary Dx); Vocal fold paralysis, unilateral; Thyroid cancer (HCC) after 05/04/2017 Family History Medical History Relation Name Comments Cancer Father trachea Stroke Mother Relation Name Status Comments Father Mother Social History Tobacco Use Types Packs/Day Years Used Date Passive Smoke Exposure - Never Smoker Smokeless Tobacco: Never Used Alcohol Use Drinks/Week oz/Week Comments Yes rarely Sex Assigned at Date Recorded Not on file Job Start Date Occupation Industry Not on file Not on file Not on file Travel History Travel Start Travel End No recent travel history available. Last Filed Vital Signs Vital Sign Reading Time Taken Blood Pressure 132/88 03/25/2018 2:22 PM [employer] Pulse 83 03/25/2018 2:22 PM [employer] Temperature - - Respiratory Rate - - Oxygen Saturation - - Inhaled Oxygen Concentration - - Weight 94.8 kg (209 lb) 03/25/2018 2:22 PM [employer] Height 170.2 cm (5' 7") 03/25/2018 2:22 PM [employer] Body Mass Index 32.73 03/25/2018 2:22 PM [employer] Plan of Treatment Health Maintenance Due Date Last Done Comments CERVICAL CANCER SCREENING 12/19/1980 BREAST CANCER SCREENING 12/19/2009 COLON CANCER SCREENING 12/19/2009 SHINGLES VACCINES (#1) 12/19/2009 INFLUENZA VACCINE 09/23/2017 Results Not on fileafter 05/04/2017 Insurance Payer Benefit Plan / Group Subscriber ID Type Phone Address [facility] [employer] xxxxxxxxxxxx HMO (Home) [address] [place] [id number] Advance Directives Patient has advance care planning documents on file. For more information, please contact:[place] [address]
--- OUTSIDE RECORDS SUMMARY | 2018-05-05 09:48 | XMS REPORT ---
:1960 [facility] Address [address] [place] [address] Dr. Ignacio [address] [place] [id number] Care Team Providers Name Role Phone Unavailable Unavailable Unavailable Problems This patient has no known problems. Allergies, Adverse Reactions, Alerts This patient has no known allergies or adverse reactions. Medications This patient has no known medications.
--- NOTE | 2018-05-05 11:04 | RAD REPORT ---
EXAM DESCRIPTION: US - Guided FNA Non Breast - 05/05/2018 10:54 am CLINICAL HISTORY: C73, R59.0, Z93.0 COMPARISON: Guided FNA Non Breast dated 06/24/2017; Soft Tissue Neck W/Contr dated 04/07/2018 FINDINGS: Preoperative diagnosis: Left thyroid lesion.. Post operative diagnosis: Same. Conscious Sedation: None Fluoroscopy time: None Contrast used: None Estimated blood loss: Minimal Specimens:5 x 25 gauge FNA samples were obtained The left neck was prepped and draped in the usual sterile fashion. 1% lidocaine was infiltrated into the subcutaneous tissues for local anesthesia. Real time ultrasound scanning of the left neck demonst rated oblong hypoechoic 2 x 1.5 cm lesion. Under ultrasound guidance, using 25 gauge FNA needles, 5 s pecimens were obtained of this lesion and sent to pathology for evaluation. Predominately, dark cysti c type fluid was obtained from the FNA samples in the lesion appeared visibly smaller following the p rocedure suggesting that it represents a cystic lesion. There were no complications. IMPRESSION: Successful ultrasound-guided FNA procedure of left neck lesion. The lesion likely is cys tic in nature.
== END ==
LOC: FNA 09:35
PROVIDERS: ATTEND Otolaryngology
DX: R59.0 Localized enlarged lymph nodes (principal); Z93.0 Tracheostomy status; Z85.850 Personal history of malignant neoplasm of thyroid; Z92.3 Personal history of irradiation
CPT/HCPCS: 88162; 88305